=== PATIENT | female | born 1975 | race Caucasian/White ===

== ENCOUNTER 2023-10-27 13:21 | Outpatient (OUT) | payer OTHER, SELFPAY ==
--- NOTE | 2023-10-27 | XR_ITS ---
The [address] [address] Patient Name: JOHANN HASSAN MRN: [id number] date: 1975 Sex: F Assigned Patient Location: [facility] Current Patient Location: [facility] Accession/Order Number: [id number] Exam Date: 10/27/2023 13:40 Report Date: 10/27/2023 14:10 At the request of: KYLE HAND Procedure: XR foot RT min 3V EXAM: XR foot RT min 3V HISTORY: RIGHT FOOT PAIN while exercising. COMPARISON: None. TECHNIQUE: 3 views of the right foot were obtained. FINDINGS: There is no apparent acute fracture or dislocation. Very subtle changes are seen in the distal shaft of the fourth metatarsal bone suggesting a remote fracture or stress fracture which has healed. The joint spaces are intact throughout. No significant soft tissue swelling is identified. XR/XR foot RT min 3V IMPRESSION: No acute fracture or dislocation. Subtle changes in the fourth metatarsal bone suggests an old fracture or stress fracture which has healed. Direct comparison with a previous study may be helpful in determining the chronicity of these findings. Electronically authenticated by: KYLE BOWLES Date: 10/27/2023 14:10
== END 2023-10-27 13:22 | disposition home or self-care (01) ==
LOC: RAD 13:23
PROVIDERS: Visit Provider Podiatrist Foot & Ankle Surgery
DX: M79.671 Pain in right foot (principal)
CPT/HCPCS: 73630

== ENCOUNTER 2023-11-02 15:21 | Outpatient (OUT) | payer OTHER, SELFPAY ==
--- OUTSIDE RECORDS SUMMARY | 2023-11-02 15:23 | XMS_ITS | CCD ---
Author Name Unknown Address [address] [place] [address] Organization [facility] Care Team Providers Care [place] Worker Name Role Phone DR AHMET NEVAREZ Admitting Unavailable DR AHMET NEVAREZ Attending Unavailable BOO, DR TUTTLE Primary Care Unavailable DR AHMET NEVAREZ Consulting Unavailable [place] Primary Care Unavailable Rod Matute Attending Unavailable Rod Matute Admitting Unavailable Pura Tristan Unavailable Allergies Allergy Classification Reported Allergen(s) Allergy Type Date of Onset Reaction(s) Facility (1 source) Sulfonamides (Antibiotic) Drug allergy (disorder) [address] [place] [address] Repository (1 source) Sulfacetamide / Sulfur Drug Allergy [facility] [employer] Other Medications Current Medications Medication Drug Class(es) Dates Sig (Normalized) Sig (Original) azithromycin 250 mg oral tablet (1 source) Macrolide Antimicrobial Start: 09-27-2023 Azithromycin 250 MG Take 2 tablets on first day then 1 tablet daily for 4 days Orally as directed for 5 days Sep, Active Completed/Discontinued Medications Medication Drug Class(es) Dates Sig (Normalized) Sig (Original) amoxicillin 875 mg oral tablet (1 source) Penicillin-class Antibacterial Start: 08-31-2018 take 1 tablet by mouth every twelve hours Amoxicillin 875 MG 1 tablet Orally every 12 hrs for 7 days Aug, Not-Taking/PRN fluticasone propionate 0.05 mg/actuat metered dose nasal spray (1 source) Corticosteroid Start: 08-31-2018 take 1 spray(s) nasal route once daily as needed Fluticasone Propionate 50 MCG/ACT 1 spray in each nostril Nasally Once a day for 21 days Aug, Not-Taking/PRN Hydroxychloroquine (1 source) Antimalarial, Antirheumatic Agent Plaquenil Not-Taking/PRN methylPREDNISolone 4 mg oral tablet (1 source) Corticosteroid Start: 08-31-2018 Medrol (Zachery) 4 MG as directed Orally Aug, Not-Taking/PRN Problems Active Problems Problem Classification Problem Date Documented Da te Episodic/Chronic Other ear and sense organ disorders (1 source) Otitis externa; Translations: [Unspecified otitis externa, unspecified ear] Chronic Otitis media and related conditions (1 source) Otitis media, unspecified, bilateral Episodic Systemic lupus erythematosus and connective tissue disorders (4 sources) Systemic lupus erythematosus, unspecified; Translations: [SYSTEMIC LUPUS ERYTHMATOSUS UNS] Onset: 05-17-2021 Chronic Unclassified (1 source) Encounter for screening mammogram for malignant neoplasm of breast; Translations: [Encounter for screening mammogram for malignant neoplasm of breast] Onset: 03-30-2023 Past or Other Problems Problem Classification Problem Date Documented Da te Episodic/Chronic Unclassified (1 source) Contact with and (suspected) exposure to covid-19 Z20.822 Viral infection (1 source) COVID-19 Results Test Name Value Interpretation Reference Range Facility COVID + FLU Quick Testingon 09-27-2023 SARS-CoV-2 (COVID-19) RNA VY+probe Ql (Unsp spec) Positive [employer] [facility] Other COVID + FLU Quick Testing Negative [employer] Other MM screening mammo BI w/CADo n 03-30-2023 MM screening mammo BI w/CAD [facility] [place] [address] [place] [address] Mammography Report Signed Patient: Catalina Hassan MR#: [id number] : 1975 Acct:[id number] Age/Sex: 47 / F ADM Date: 03/30/23 Loc: [place] Room: Type: [facility] Attending Dr: Rod Matute DO Copies to: MD Rod Garcia DO Ordering Provider: Rod Matute DO Date of Service: 03/30/23 MM/MM screening mammo BI w/CAD: screening;Screening mammogram, encounter for CLINICAL DATA: Screening for malignancy. BILATERAL SCREENING MAMMOGRAMS - FULL FIELD DIGITAL WITH TOMOSYNTHESIS AND CAD Tomosynthesis craniocaudal and mediolateral oblique views of both breasts were obtained using low- dose digital technique. Comparison is made to prior studies from 03/26/2022, 03/25/2021, and 03/21/2020. This examination was reviewed with the aid of CAD. The breast parenchyma is very dense, limiting the sensitivity of mammography. Benign-appearing calcifications are present bilaterally. There are no dominant masses, typically malignant calcifications or architectural distortion. There has been no significant interval change. MM/MM screening mammo BI w/CAD IMPRESSION: NO MAMMOGRAPHIC EVIDENCE OF MALIGNANCY. ROUTINE FOLLOW-UP IS RECOMMENDED IN ONE YEAR. RESULT CODE: 2 Benign Findings(s) DENSITY CODE: 4 (>75% glandular) FOLLOW UP: 1YR The false-negative rate of mammography is approximately 10-percent. Management of a palpable abnormality must be based on clinical grounds. Patient was entered into a reminder system with a target due date for the next mammogram. Impression dictated by: Antonio Brody M.D.03/30/2023 2:06 PM Dictation Location: [facility] Transcribed By: [facility] 03/30/23 140 Dictated By: Antonio Brody II, MD 03/30/231400 Signed By: 03/30/23 140 [facility] C3 and C4 COMPLEMENTon 05-18 Complement C3, Serum 89 mg/dL Normal 82-167 [facility] Comment on above: Performed By: #### CSUITE #### [facility] [place] [facility] [address] [place], [place] [address] Ivan Cassia Complement C4, Serum 13 mg/dL Normal 12-38 [facility] [place] [facility] Comment on above: Performed By: #### CSUITE #### [facility] [place] [facility] [address] [place], [place] [address] Ivan Cassia CBC AUTO DIFFon 05-17-2021 BASO # 0.0 103/ul Normal 0.0-0.1 [facility] Comment on above: Performed By: #### CBC #### [facility] [place] [facility] [address] [place], [place] [address] Ivan Cassia Basophils/100 WBC (Bld) 0.8 % Normal 0.2-2.0 [facility] Comment on above: Performed By: #### CBC #### [facility] [place] [facility] [address] [place], [place] [id number] Ivan Cassia EO # 0.0 103/ul Normal 0.0-0.7 [facility] [place] [facility] Comment on above: Performed By: #### CBC #### [facility] [place] [facility] [address] [place] [address] Ivan Cassia Eosinophils/100 WBC (Bld) 1.0 % Normal 0.9-7.0 [facility] [place] [facility] Comment on above: Performed By: #### CBC #### [facility] [place] [facility] [address] [place] [address] Ivan Cassia Erythrocyte distribution width (RBC) [Ratio] 12.5 % Normal 11.0-15.0 [facility] [place] [facility] Comment on above: Performed By: #### CBC #### [facility] [place] [facility] [address] [place] [address] Ivan Cassia Hematocrit (Bld) [Volume fraction] 40.7 % Normal 36.0-48.0 [facility] Comment on above: Performed By: #### CBC #### [facility] [place] [facility] [address] [place] [address] Ivan Cassia Hemoglobin (Bld) [Mass/Vol] 13.7 g/dL Normal 12.0-16.0 [facility] [place] [facility] Comment on above: Performed By: #### CBC #### [facility] [place] [facility] [address] [place] [address] Ivan Cassia IG # 0.01 10e3/ul Normal 0.00-0.03 [facility] [place] [facility] Comment on above: Performed By: #### CBC #### [facility] [place] [facility] [address] [place] [address] Ivan Cassia IG % 0.3 % Normal 0.0-0.5 [facility] [place] [facility] Comment on above: Performed By: #### CBC #### [facility] [place] [facility] [address] [place] [address] Ivan Cassia LYMPH # 1.4 103/ul Normal 1.2-3.8 [facility] [place] [facility] Comment on above: Performed By: #### CBC #### [facility] [place] [facility] [address] [place] [address] Ivan Cassia Lymphocytes/100 WBC (Bld) 36.5 % Normal 20.5-60.0 [facility] [place] [facility] Comment on above: Performed By: #### CBC #### [facility] [place] [facility] [address] [place] [address] Ivan Antony MANUAL DIFF REQ NO Normal [facility] [place] [facility] Comment on above: Performed By: #### CBC #### [facility] [place] [facility] [address] [place] [address] Ivansteffen Antony MCH (RBC) [Entitic mass] 32.0 pg Normal 26.7-34.0 [facility] [place] [facility] Comment on above: Performed By: #### CBC #### [facility] [place] [facility] [address] [place] [address] Ivansteffen Antony MCHC (RBC) [Mass/Vol] 33.7 g/dL Normal 29.9-35.2 [facility] [place] [facility] Comment on above: Performed By: #### CBC #### [facility] [place] [facility] [address] [place] [address] Ivansteffen Antony MCV (RBC) [Entitic vol] 95.1 fL Normal 81.0-99.0 [facility] [place] [facility] Comment on above: Performed By: #### CBC #### [facility] [place] [facility] [address] [place] [address] Ivansteffen Antony MONO # 0.4 103/ul Normal 0.3-0.8 [facility] [place] [facility] Comment on above: Performed By: #### CBC #### [facility] [place] [facility] [address] [place] [address] Ivan Cassia Monocytes/100 WBC (Bld) 10.3 % Normal 1.7-12.0 [facility] [place] [facility] Comment on above: Performed By: #### CBC #### [facility] [place] [facility] [address] [place] [address] Ivan Cassia NEUT # 2.0 103/ul Normal 1.4-6.5 [facility] [place] [facility] Comment on above: Performed By: #### CBC #### [facility] [place] [facility] [address] [place] [address] Ivansteffen Antony Neutrophils/100 WBC (Bld) 51.1 % Normal 43.0-75.0 [facility] Comment on above: Performed By: #### CBC #### [facility] [place] [facility] [address] [place] [address] Ivan Antony Platelet mean volume (Bld) [Entitic vol] 10.2 fL Normal 9.5-13.5 [facility] Comment on above: Performed By: #### CBC #### [facility] [place] [facility] [address] [place] [address] Ivan Quinteroen PLT 196 103/ul Normal 150-450 [facility] [place] [facility] Comment on above: Performed By: #### CBC #### [facility] [place] [facility] [address] [place] [address] Ivan Cassia RBC 4.28 106/ul Normal 4.20-5.40 [facility] [place] [facility] Comment on above: Performed By: #### CBC #### [facility] [place] [facility] [address] [place] [address] Ivan Quinteroen WBC 3.9 103/ul Critically low 4.0-11.0 [facility] Comment on above: Performed By: #### CBC #### [facility] [place] [facility] [address] [place] [address] Ivan Antony CREATININEon 05-17-2021 Creatinine [Mass/Vol] 0.96 mg/dL Normal 0.52-1.04 [facility] [place] [facility] Comment on above: Performed By: #### CRP, CREA #### [facility] [place] [facility] [address] [place] [address] Ivan Cassia EGFR-AF SRI LANKAN >60 Normal >=60 [facility] [place] [facility] Comment on above: Performed By: #### CRP, CREA #### [facility] [place] [facility] [address] [place] [address] Ivan Cassia EGFR-NON AF SRI LANKAN >60 Normal >=60 [facility] [place] [facility] Comment on above: Performed By: #### CRP, CREA #### [facility] [place] [facility] [address] [place] [address] Ivan Antony CRPon 05-17-2021 CRP [Mass/Vol] mg/L Normal <=1.0 [facility] Comment on above: Performed By: #### CRP, CREA #### [facility] [place] [facility] [address] [place] [address] Ivan Cassia SED RATE WESTERGRENon 2020 SED RATE 4 mm/hr Normal <=20 [facility] [place] [facility] Comment on above: Performed By: #### SEDR #### [facility] [place] [facility] [address] [place] [address] Ivan Cassia UA RANDOM W/MICROSCOPICon BACTERIA TRACE Abnormal NONE SEEN [facility] [place] [facility] Comment on above: Performed By: #### UAMIC #### [facility] [place] [facility] [address] [place] [address] Ivan Cassia Bilirubin Ql (U) Negative Normal NEGATIVE [facility] [place] [facility] Comment on above: Performed By: #### UAMIC #### [facility] [place] [facility] [address] [place] [address] Ivan Cassia CAST NONE SEEN Normal NONE SEEN [facility] [place] [facility] Comment on above: Performed By: #### UAMIC #### [facility] [place] [facility] [address] [place] [address] Ivan Cassia Clarity (U) SL CLOUDY Abnormal CLEAR [facility] [place] [facility] Comment on above: Performed By: #### UAMIC #### [facility] [place] [facility] [address] [place] [address] Ivan Cassia Color (U) LT. YELLOW Normal YELLOW [facility] [place] [facility] Comment on above: Performed By: #### UAMIC #### [facility] [place] [facility] [address] [place] [address] Ivan Cassia Crystals LM Nom (Urine sed) NONE SEEN Normal NONE SEEN [facility] [place] [facility] Comment on above: Performed By: #### UAMIC #### [facility] [place] [facility] [address] [place] [address] Ivan Cassia Epithelial cells LM Ql (Urine sed) RARE Normal NONE SEEN /RARE [facility] [place] [facility] Comment on above: Performed By: #### UAMIC #### [facility] [place] [facility] [address] [place] [address] Ivan Cassia Glucose Ql (U) Negative Normal NEGATIVE [facility] Comment on above: Performed By: #### UAMIC #### [facility] [place] [facility] [address] [place] [address] Ivan Cassia Hemoglobin Ql (U) Negative Normal NEGATIVE [facility] [place] [facility] Comment on above: Performed By: #### UAMIC #### [facility] [place] [facility] [address] [place] [address] Ivan Cassia Ketones Ql (U) Negative Normal NEGATIVE [facility] Comment on above: Performed By: #### UAMIC #### [facility] [place] [facility] [address] [place] [address] Ivan Cassia LEUKOCYTES Negative Normal NEGATIVE [facility] [place] [facility] Comment on above: Performed By: #### UAMIC #### [facility] [place] [facility] [address] [place] [address] Ivan Cassia MUCOUS NONE SEEN Normal NONE SEEN [facility] [place] [facility] Comment on above: Performed By: #### UAMIC #### [facility] [place] [facility] [address] [place] [address] Ivan Cassia Nitrite Ql (U) Negative Normal NEGATIVE [facility] Comment on above: Performed By: #### UAMIC #### [facility] [place] [facility] [address] [place] [address] Ivan Cassia pH (U) 7.0 [pH] Normal 5-9 [facility] [place] [facility] Comment on above: Performed By: #### UAMIC #### [facility] [place] [facility] [address] [place] [address] Ivan Cassia RBC NONE SEEN Abnormal 0-2 [facility] [place] [facility] Comment on above: Performed By: #### UAMIC #### [facility] [place] [facility] [address] [place] [address] Ivan Cassia SPEC GRAVITY <=1.005 Abnormal 1.005-<=1.0 25 [facility] Comment on above: Performed By: #### UAMIC #### [facility] [place] [facility] [address] [place] [address] Ivan Cassia UA PROTEIN Negative Normal NEGATIVE/ TRACE [facility] [place] [facility] Comment on above: Performed By: #### UAMIC #### [facility] [place] [facility] [address] [place] [address] Ivan Cassia Urobilinogen Qn (U) 0.2 {Edgard'U}/dL Normal 0.2 - 1.0 [facility] [place] [facility] Comment on above: Performed By: #### UAMIC #### [facility] [place] [facility] [address] [address] Ivan Antony WBC NONE SEEN Normal NONE SEEN [facility] [place] [facility] Comment on above: Performed By: #### UAMIC #### [facility] [place] [facility] [address] [address] Ivan Antony PROGRESSon 08-27-2018 Protein mass conc HNO ID: [id number]: [facility] ProviderService: (none)Author Type: PhysicianType: Progress NotesFiled: 08/27/2018 6:27 AMNote Text:null (CCF:Not available [id number]:[id number])Visit Summary for Catalina Hassan - Gender: Female - Date of :1975 ( ) Date: - Duration: 5 minutesPatient: Catalina Crook JenniferProvider: Justus PedrazaPatient Contact [id number] [place] [id number] Topicspotential sinus infection, lots of snot, throat is sore. : other [AddedBy: Self - 2018-08-27]Triage QuestionsPlease provide your current address. We need this on file in case of amedical emergency.Answer [[phone] [phone]]Conversation Transcripts [Notification] Practice Staff, Global Staff, will help you prepare foryour visit. She is assisting Justus Pedraza Family .[PracticeStaff] Ivan, and thank you for connecting. The provider you are waitingto connect with is currently with another patient and will begin yourvisit shortly. Are there any questions I can answer about utilizing thisservice while you are waiting? (Please contact our customer service teamfor assistance with billing and insurance issues.)[Notification] Mitesh has left the room.[Notification] You are connected with Family Hafsa Hickman.[Notification] Catalina Hassan is located [facility].[Notification] Catalina Hassan has shared healthhistory...[Notification] A phone visit is being added.[Notification]Justus Pedraza has added a diagnosis/procedure code (see the VisitNotes tab).[Notification] Justus Pedraza has added adiagnosis/procedure code (see the Visit Notes tab).[Notification] Thephone visit has ended.DiagnosisAcute upper respiratory infection, unspecified Value: J06.9Code: [id number]: [id number] Code: CPT-4 ONLINE E/M BY PHYS/QHPMedications PrescribedPlaquenilFrequency :Provider Notes We strongly encourage you to share the following record of today's visitwith your primary care physician. Contact phone number:Mode ofCommunication: VideoHPI: Over the past few days patient has developedscratchy throat, rhinitis, and a mild dry cough. The patient feels alittle achy and tired, but has not had fever. No known exposure to strep. PMH: LupusPSH: C-sectionSmoking HX: NonsmokerMeds: PlaquenilAllergies:SulfaPE: Gen: Well appearing, in no acute distressNose: CongestedResp:Nasal voice and throat cleaning. No respiratory distress or wheezeSinus:No sinus tenderness. No SOB or wheeze. Assessment: upper respiratoryinfection, most likely viral Diagnosis Code J06.9 Plan: 1.Discussedoptions. Recommend supportive treatment- Fluids, rest, Tylenol. Nasalsalt water irrigation or Neti Pot can be helpful. 2.Sleeping withhead/chest elevated can help with sinus drainage. 3.Follow up ifsymptoms worsen or if symptoms persist longer than 5-7 days. 4.Discussedprecautions. Follow up:1.If you received a prescription at this visit andhave any questions or problems with the prescription, call [phone] assistance. 2.Please re-connect for another online visit or see anin-person provider should your symptoms worsen or persist longer than 5-7days. 3.Please print a copy of this note and send it to your regulardoctor, or take it to your next visit so it may be included in yourmedical record. Patient voiced understanding and agrees to plan. Pleasebe sure to see your PCP on an annual basis.Electronically signed by: Justus Pedraza( ) Normal [facility] Vital Signs Date Time Vital Sign Value Performing Clinician Facility 09-27-2023 14:00-0500 Body height 167.64 cm Pura Kun Other [facility] [facility] Other 09-27-2023 14:00-0500 Body mass index (BMI) [Ratio] 26.14 kg/m2 Pura Kun Other [facility] [facility] Other 09-27-2023 14:00-0500 Body temperature 97.8 [degF] Pura Kun Other [facility] Other 09-27-2023 14:00-0500 Body weight 73.48 kg Pura Kun Other [facility] [facility] Other 09-27-2023 14:00-0500 Respiratory rate 18 /min Pura Kun Other [facility] Other 09-27-2023 14:00-0500 SaO2% (BldA) [Mass fraction] 98 % Pura Kun Other [facility] Other Encounters Encounter Date Encounter Type Care Provider Facility Start: 09-27-2023 End: 09-27-2023 ambulatory Pura Kun Other [facility] Other Start: 09-27-2023 Office outpatient vi sit 15 minutes Pura Kun [facility] Start: 03-30-2023 End: 03-30-2023 ambulatory [place]is [place] Facility:[facility] Start: 05-17-2021 End: 05-18-[address] AHMET NEVAREZ Facility: Payers Date Payer Category Payer Self-pay 1975 Unknown [id number] 1957 Unknown [id number] Unknown [id number] Social History Date Type Detail Facility Sex Assigned At [facility] Other Evaluation note 09-27-2023 Note Date & Type Note Facility 09-27-2023 Evaluation note Encounter Date Diagnosis Assessment Notes Sep, Contact with and (suspected) exposure to covid-19 (ICD-10 - Z20.822) Sep, COVID (ICD-10 - U07.1) You were seen here today for your complaints of sore throat, ear pain, congestion, cough, headaches, runny nose, and fevers. You were tested for covid, flu. You tested positive for covid. Covid is a viral illness and antibiotics are not necessary for covid. You do have a bilateral ear infection starting with redness to both ear canals and the ear drum. You are being prescribe dthe antibiotic azithromying for your ear infection. Take the medicaiton as directed. Rest, drink plenty of fluid, take tylenol and motrin for fever, discomfort. You may take over the counter cold and flu medication for symptoms, follow boxx instructions. [facility] if symptoms persist, go to the ER if you develop chest pain, shortness of breath, difficulty breathing or pain with deep breathing. Sep, Acute bilateral otitis media (ICD-10 - H66.93) [place] [employer] Other History general Narrative - Reported Note Date & Type Note Facility History general Narrative - Reported Type Medical History Lupus Surgical History Hospitalization History see above surgical histo ry [employer] Other Summary Purpose Family History No Family History Records FoundNo Family History Records FoundNo Family History Records Found Advance Directives No Advanced Directives Records FoundNo Advanced Directives Records FoundNo Advanced Directives Records Found Additional Source Comments INFORMATION SOURCE (unrecogn ized section and content) DATE CREATED AUTHOR 09/20/2018 [facility] DATE CREATED AUTHOR AUTHOR'S ORGANIZ ATION 07/06/2021 [facility] DATE CREATED AUTHOR AUTHOR'S ORGANIZ ATION 03/31/2023 [facility] REASON FOR VISIT (unrecogniz ed section and content) waiting in car- HEAD COLD, C ONGESTION EARS FOR RECORDS PERTAINING TO PATIENTS WHO ARE OR HAVE BEEN ENROLLED IN A CHEMICAL DEPENDENCY/SUBSTANCEABUSE PROGRAM, SOME INFORMATION MAY BE OMITTED. This clinical summary was aggregated from multiple sources. Caution should be exercised in using it in the provision of clinical care. This summary normalizes information from multiple sources, and as a consequence, information in this document may materially change the coding, format and clinical context of patient data. In addition, data may be omitted in some cases. CLINICAL DECISIONS SHOULD BE BASED ON THE PRIMARY CLINICAL RECORDS. [facility] [email or web address] [facility]. provides no warranty or guarantee of the accuracy or completeness of information in this document.
--- NOTE | 2023-11-02 15:25 | MR_ITS ---
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 TECHNIQUE: Multi planar, multisequence MR imaging of the right ankle without contrast Findings: Bones and cartilage: No acute fracture or malalignment. No focal bone marrow edema. No significant degenerative change. No articular erosions. No osteochondral abnormality. Muscles and tendons: No abnormal signal within the visualized musculature. The Achilles, anterior, medial and lateral tendons about the ankle are intact. No significant tendinosis or tenosynovitis. Ligaments: The medial and lateral ligaments about the ankle are intact. Spring ligament is intact. Fat signal persists within the sinus Tarsi. Miscellaneous: Trace ankle effusion extending posteriorly. There is focal thickening of the proximal medial band of the plantar fascia. MR/MR ankle RT wo con IMPRESSION: 1. Focal thickening of the proximal medial band of the plantar fascia may relate to fasciitis or possibly a fibroma. Electronically authenticated by: NAKUL DHILLON Date: 11/03/2023 07:52
== END 2023-11-02 15:22 | disposition home or self-care (01) ==
LOC: MRI 15:21
PROVIDERS: Visit Provider Physician Assistant
DX: D49.2 Neoplasm of unspecified behavior of bone, soft tissue, and skin (principal)
CPT/HCPCS: 73721

== ENCOUNTER 2023-11-26 12:12 | Outpatient (OUT) | payer OTHER, SELFPAY ==
--- OUTSIDE RECORDS SUMMARY | 2023-11-26 12:17 | XMS_ITS | CCD ---
Author Name Unknown Address [address] [place] [address] Organization [facility] Care Team Providers Care School Administrator Name Role Phone DR AHMET NEVAREZ Admitting Unavailable DR AHMET NEVAREZ Attending Unavailable BOO, DR TUTTLE Primary Care Unavailable DR AHMET NEVAREZ Consulting Unavailable [place] [place] Primary Care Unavailable Rod Matute Attending Unavailable Rod Matute Admitting Unavailable Pura Tristan Unavailable Allergies Allergy Classification Reported Allergen(s) Allergy Type Date of Onset Reaction(s) Facility (1 source) Sulfonamides (Antibiotic) Drug allergy (disorder) [address] [place] [address] Repository (1 source) Sulfacetamide / S[facility]ur [facility] Other Medications Current Medications Medication Drug Class(es) [...] (COVID-19) RNA VY+probe Ql (Unsp spec) Positive [facility] Other COVID + FLU Quick Testing Negative [facility] Other MM screening mammo BI w/CADo n 03-30-2023 MM screening mammo BI w/CAD [facility] Main [place] [address] [place] [address] Mammography Report Signed Patient: Catalina Hassan MR#: [id number] : 1975 Acct:[id number] Age/Sex: 47 / F ADM Date: 03/30/23 Loc: MS Room: Type: [facility] Attending Dr: Rod Matute DO Copies to: [...] Antonio Brody M.D.03/30/2023 2:06 PM Dictation Location: [facility] Transcribed By: [facility] 03/30/23 140 Dictated By: Antonio Brody II, MD 03/30/231400 Signed By: 03/30/23 140 [facility] C3 and C4 COMPLEMENTon 05-18 Complement C3, Serum 89 mg/dL Normal 82-167 [facility] Comment on above: Performed By: #### CSUITE #### [facility] [address] [place], [place] [address] Ivan Cassia Complement C4, Serum 13 mg/dL Normal 12-38 [facility] Comment on above: Performed By: #### CSUITE #### [facility] [address] [place], [place] [address] Ivan Cassia CBC AUTO DIFFon 05-17-2021 BASO # 0.0 103/ul Normal 0.0-0.1 [facility] Comment on above: Performed By: #### CBC #### [facility] [address] [place], [place] [address] Ivan Cassia Basophils/100 WBC (Bld) 0.8 % Normal 0.2-2.0 [facility] Comment on above: Performed By: #### CBC #### [facility] [address] [place], [place] [id number] Ivan Cassia EO # 0.0 103/ul Normal 0.0-0.7 [facility] Comment on above: Performed By: #### CBC #### [facility] [address] [place] [address] Ivan Cassia Eosinophils/100 WBC (Bld) 1.0 % Normal 0.9-7.0 [facility] Comment on above: Performed By: #### CBC #### [facility] [address] [place] [address] Ivan Cassia Erythrocyte distribution width (RBC) [Ratio] 12.5 % Normal 11.0-15.0 [facility] Comment on above: Performed By: #### CBC #### [facility] [address] [place] [address] Ivan Cassia Hematocrit (Bld) [Volume fraction] 40.7 % Normal 36.0-48.0 [facility] Comment on above: Performed By: #### CBC #### [facility] [address] [place] [address] Ivan Cassia Hemoglobin (Bld) [Mass/Vol] 13.7 g/dL Normal 12.0-16.0 [facility] Comment on above: Performed By: #### CBC #### [facility] [address] [place] [address] Ivan Cassia IG # 0.01 10e3/ul Normal 0.00-0.03 [facility] Comment on above: Performed By: #### CBC #### [facility] [address] [place] [address] Ivan Csasia IG % 0.3 % Normal 0.0-0.5 [facility] Comment on above: Performed By: #### CBC #### [facility] [address] [place] [address] Ivan Cassia LYMPH # 1.4 103/ul Normal 1.2-3.8 [facility] Comment on above: Performed By: #### CBC #### [facility] [address] [place], [place] [id number] Ivan Cassia Lymphocytes/100 WBC (Bld) 36.5 % Normal 20.5-60.0 [facility] Comment on above: Performed By: #### CBC #### [facility] [address] [place] [address] Ivan Antony MANUAL DIFF REQ NO Normal [facility] Comment on above: Performed By: #### CBC #### [facility] [address] [place] [address] Ivansteffen Antony MCH (RBC) [Entitic mass] 32.0 pg Normal 26.7-34.0 [facility] Comment on above: Performed By: #### CBC #### [facility] [address] [place] [address] Ivansteffen Antony MCHC (RBC) [Mass/Vol] 33.7 g/dL Normal 29.9-35.2 [facility] Comment on above: Performed By: #### CBC #### [facility] [address] [place] [address] Ivan Cassia MCV (RBC) [Entitic vol] 95.1 fL Normal 81.0-99.0 [facility] Comment on above: Performed By: #### CBC #### [facility] [address] [place] [address] Ivan Cassia MONO # 0.4 103/ul Normal 0.3-0.8 [facility] Comment on above: Performed By: #### CBC #### [facility] [address] [place] [address] Ivan Cassia Monocytes/100 WBC (Bld) 10.3 % Normal 1.7-12.0 [facility] Comment on above: Performed By: #### CBC #### [facility] [address] [place] [address] Ivan Cassia NEUT # 2.0 103/ul Normal 1.4-6.5 [facility] Comment on above: Performed By: #### CBC #### [facility] [address] [place] [address] Ivansteffen Antony Neutrophils/100 WBC (Bld) 51.1 % Normal 43.0-75.0 [facility] Comment on above: Performed By: #### CBC #### [facility] [address] [place] [address] Ivan Antony Platelet mean volume (Bld) [Entitic vol] 10.2 fL Normal 9.5-13.5 [facility] Comment on above: Performed By: #### CBC #### [facility] [address] [place] [address] Ivan Quinteroen PLT 196 103/ul Normal 150-450 [facility] Comment on above: Performed By: #### CBC #### [facility] [address] [place] [address] Ivansteffen Quinteroen RBC 4.28 106/ul Normal 4.20-5.40 [facility] Comment on above: Performed By: #### CBC #### [facility] [address] [place] [address] Ivan Antony WBC 3.9 103/ul Critically low 4.0-11.0 [facility] [place] Comment on above: Performed By: #### CBC #### [facility] [address] [place] [address] Ivan Anotny CREATININEon 05-17-2021 Creatinine [Mass/Vol] 0.96 mg/dL Normal 0.52-1.04 [facility] Comment on above: Performed By: #### CRP, CREA #### [facility] [address] [place] [address] Ivansteffen Quinteroen EGFR-AF PANAMANIAN >60 Normal >=60 [facility] Comment on above: Performed By: #### CRP, CREA #### [facility] [address] [place] [address] Ivansteffen Quinteroen EGFR-NON AF PANAMANIAN >60 Normal >=60 [facility] Comment on above: Performed By: #### CRP, CREA #### [facility] [address] [place] [address] Ivan Antony CRPon 05-17-2021 CRP [Mass/Vol] mg/L Normal <=1.0 [facility] [place] Comment on above: Performed By: #### CRP, CREA #### [facility] [address] [place] [address] Ivan Cassia SED RATE WESTERGRENon 2020 SED RATE 4 mm/hr Normal <=20 [facility] Comment on above: Performed By: #### SEDR #### [facility] [address] [place] [address] Ivan Cassia UA RANDOM W/MICROSCOPICon BACTERIA TRACE Abnormal NONE SEEN [facility] Comment on above: Performed By: #### UAMIC #### [facility] [address] [place] [address] Ivan Cassia Bilirubin Ql (U) Negative Normal NEGATIVE [facility] Comment on above: Performed By: #### UAMIC #### [facility] [address] [place] [address] Ivan Cassia CAST NONE SEEN Normal NONE SEEN [facility] Comment on above: Performed By: #### UAMIC #### [facility] [address] [place] [address] Ivan Cassia Clarity (U) SL CLOUDY Abnormal CLEAR [facility] Comment on above: Performed By: #### UAMIC #### [facility] [address] [place] [address] Ivan Cassia Color (U) LT. YELLOW Normal YELLOW [facility] Comment on above: Performed By: #### UAMIC #### [facility] [address] [place] [address] Ivan Cassia Crystals LM Nom (Urine sed) NONE SEEN Normal NONE SEEN [facility] Comment on above: Performed By: #### UAMIC #### [facility] [address] [place] [address] Ivan Cassia Epithelial cells LM Ql (Urine sed) RARE Normal NONE SEEN /RARE [facility] Comment on above: Performed By: #### UAMIC #### [facility] [address] [place] [address] Ivan Cassia Glucose Ql (U) Negative Normal NEGATIVE [facility] [place] Comment on above: Performed By: #### UAMIC #### [facility] [address] [place] [address] Ivan Cassia Hemoglobin Ql (U) Negative Normal NEGATIVE [facility] Comment on above: Performed By: #### UAMIC #### [facility] [address] [place] [address] Ivan Cassia Ketones Ql (U) Negative Normal NEGATIVE [facility] [place] Comment on above: Performed By: #### UAMIC #### [facility] [address] [place] [address] Ivan Cassia LEUKOCYTES Negative Normal NEGATIVE [facility] Comment on above: Performed By: #### UAMIC #### [facility] [address] [place] [address] Ivan Cassia MUCOUS NONE SEEN Normal NONE SEEN [facility] Comment on above: Performed By: #### UAMIC #### [facility] [address] [place] [address] Ivan Cassia Nitrite Ql (U) Negative Normal NEGATIVE [facility] [place] Comment on above: Performed By: #### UAMIC #### [facility] [address] [place] [address] Ivan Cassia pH (U) 7.0 [pH] Normal 5-9 [facility] Comment on above: Performed By: #### UAMIC #### [facility] [address] [place] [address] Ivan Cassia RBC NONE SEEN Abnormal 0-2 [facility] Comment on above: Performed By: #### UAMIC #### [facility] [address] [place] [address] Ivan Cassia SPEC GRAVITY <=1.005 Abnormal 1.005-<=1.0 25 [facility] Comment on above: Performed By: #### UAMIC #### [facility] [address] [place] [address] Ivan Cassia UA PROTEIN Negative Normal NEGATIVE/ TRACE [facility] Comment on above: Performed By: #### UAMIC #### [facility] [address] [place] [address] Ivan Cassia Urobilinogen Qn (U) 0.2 {Edgard'U}/dL Normal 0.2 - 1.0 [facility] Comment on above: Performed By: #### UAMIC #### [facility] [address] [place] [address] Ivan Antony WBC NONE SEEN Normal NONE SEEN [facility] Comment on above: Performed By: #### UAMIC #### [facility] [address] [place] [address] Ivan Antony PROGRESSon 08-27-2018 Protein mass conc HNO ID: [id number]: [facility] ProviderService: (none)Author Type: PhysicianType: Progress NotesFiled: 08/27/2018 6:27 AMNote Text:null (CCF:Not available AMW:[id number])Visit Summary for Catalina Hassan - Gender: Female - Date of :1975 ( ) Date: - Duration: 5 minutesPatient: Catalina Crook JenniferProvider: Justus PedrazaPatient Contact [id number] [facility]; [place] [id number] Topicspotential sinus infection, lots of snot, throat is sore. : other [AddedBy: Self - 2018-08-27]Triage QuestionsPlease provide your current address. We need this on file in case of amedical emergency.Answer [[address] [address]]Conversation Transcripts [Notification] Practice Staff, Global Staff, will [...] Family Hafsa Hickman.[Notification] Catalina Hassan is located [facility]Notification] Catalina Hassan has shared healthhistory...[Notification] A phone visit is being added.[Notification]Justus Pedraza has added a diagnosis/procedure code (see the VisitNotes tab).[Notification] Justus Pedraza has added adiagnosis/procedure code (see the Visit Notes tab).[Notification] Thephone visit has ended.DiagnosisAcute upper respiratory infection, unspecified Value: J06.9Code: [id number]: [id number] Code: CPT-4 ONLINE E/M BY PHYS/QHPMedications PrescribedPlaquenilFrequency [...] questions or problems with the prescription, call [phone] assistance. 2.Please re-connect for another online visit [...] basis.Electronically signed by: Justus Pedraza( ) Normal [facility] Vital Signs Date Time Vital Sign Value Performing Clinician Facility 09-27-2023 14:00-0500 Body height 167.64 cm Pura Kun Other [facility] Other 09-27-2023 14:00-0500 Body mass index (BMI) [Ratio] 26.14 kg/m2 Pura Kun Other [facility] Other 09-27-2023 14:00-0500 Body temperature 97.8 [degF] Pura Kun Other [facility] Other 09-27-2023 14:00-0500 Body weight 73.48 kg Pura Kun Other [facility] Other 09-27-2023 14:00-0500 Respiratory rate 18 /min Pura Kun Other [facility] Other 09-27-2023 14:00-0500 SaO2% (BldA) [Mass fraction] 98 % Pura Kun Other [facility] Other Encounters Encounter Date Encounter Type Care Provider Facility Start: 09-27-2023 End: 09-27-2023 ambulatory Pura Kun Other [facility] Other Start: 09-27-2023 Office outpatient vi sit 15 minutes Pura Kun [facility] Start: 03-30-2023 End: 03-30-2023 ambulatory [place] Facility:[facility] Start: 05-17-2021 End: 05-18-[address] AHMET NEVAREZ Facility: Payers Date Payer Category Payer Self-pay 1975 Unknown [id number] 1957 Unknown [id number] Unknown [id number] Social History Date Type Detail Facility Sex Assigned At [facility] Other Evaluation note 09-27-2023 Note Date & [...] follow boxx instructions. [facility] if symptoms persist, go to the ER if you develop chest pain, shortness of breath, difficulty breathing or pain with deep breathing. Sep, Acute bilateral otitis media (ICD-10 - H66.93) [facility] Other History general Narrative - Reported Note Date & Type Note Facility History general Narrative - Reported Type Medical History Lupus Surgical History Hospitalization History see above surgical histo ry [facility] Other Summary Purpose Family History No Family History Records FoundNo Family History Records FoundNo Family History Records Found Advance Directives No Advanced Directives Records FoundNo Advanced Directives Records FoundNo Advanced Directives Records Found Additional Source Comments INFORMATION SOURCE (unrecogn ized section and content) DATE CREATED AUTHOR 09/20/2018 [facility] DATE CREATED AUTHOR AUTHOR'S ORGANIZ ATION 07/06/2021 [facility] DATE CREATED AUTHOR AUTHOR'S ORGANIZ ATION 03/31/2023 [facility] REASON FOR VISIT (unrecogniz ed section and [...] BE BASED ON THE PRIMARY CLINICAL RECORDS. [facility] [employer] [facility]. provides no warranty or guarantee of the accuracy or completeness of information in this document.
--- NOTE | 2023-11-26 12:18 | ECG_ITS ---
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
--- NOTE | 2023-11-26 12:49 | PM.PRESUREVA ---
History of Present Illness History of Present Illness Chief complaint: plantar facial fibromatosis Narrative: Patient presents for preadmission testing. The patient reports right foot pain for the past seven months or so. The patient states she is very active and has more pain after activities. She denies numbness, tingling, weakness, or any other complaints. She states she is taking meloxicam with some relief of her symptoms. Review of Systems ROS Narrative REVIEW OF SYSTEMS: Negative except as stated in HPI, ten or more systems reviewed. Constitutional: No fever , chills, weakness ENT: No sore throat or epistaxis Cardiovascular: No edema, chest pain, palpitations, or activity intolerance Respiratory: No shortness of breath, cough, or wheezing Musculoskeletal: No joint pain or swelling Gastrointestinal: No abdominal pain, constipation, diarrhea, or vomiting Genitourinary: No dysuria or hematuria Neurological: No numbness, tingling, weakness, or headache Psychiatric: No mood changes PFSH PFSH Medical History (Updated 11/26/23 @ 12:31 by Andie Slater NP) COVID-19 (09/2023) ?U07.1 - COVID-19 (ICD-10) Encounter for IUD removal ?Z30.432 - Encounter for removal of intrauterine contraceptive device (ICD-10) Attempted IUD removal, unsuccessful ?Z53.8 - Procedure and treatment not carried out for other reasons (ICD-10) ?Z97.5 - Presence of (intrauterine) contraceptive device (ICD-10) Heart murmur ?R01.1 - Cardiac murmur, unspecified (ICD-10) Foot pain ?M79.673 - Pain in unspecified foot (ICD-10) Deformity of right lower extremity ?M21.951 - Unspecified acquired deformity of right thigh (ICD-10) Plantar fascial fibromatosis ?M72.2 - Plantar fascial fibromatosis (ICD-10) Surgical History (Updated 11/26/23 @ 12:20 by Andie Slater NP) H/O section ?Z98.891 - History of uterine scar from previous surgery (ICD-10) Family History (Updated 11/26/23 @ 12:31 by Andie Slater NP) Other Family history of DVT Family history of breast cancer Family history of hypertension Heart disease Pacemaker Social History (Updated 11/26/23 @ 12:26 by Andie Slater NP) Within the past year, how often did you have a drink containing alcohol: 2-3 times a week Smoking status: Never smoker Non-prescribed substance use: denies use Previous occupational history: Parking Regulation Enforcement Officer Highest level of school completed/degree received: Master's degree Meds Home Medications and Allergies Home Medications Medication Instructions Recorded Confirmed Type meloxicam 15 mg tablet 15 mg PO DAILY 11/26/23 11/26/23 History Allergies Allergy/AdvReac Type Severity Reaction Status Date / Time Sulfa (Sulfonamide Allergy Rash Verified 11/26/23 12:25 Antibiotics) Exam Narrative Exam Narrative: Constitutional: Awake, alert, comfortable, well-appearing, nontoxic, interactive, vital signs as charted Head: Normocephalic, atraumatic Neck: Supple, normal appearance, normal range of motion, no meningeal signs, no lymphadenopathy Respiratory: No respiratory distress, breath sounds clear Cardiovascular: Regular rate and rhythm, strong and regular heart tones Musculoskeletal: Normal gait, no swelling or edema; Tenderness on the plantar aspect of the right foot along the medial arch, good capillary refill, sensation intact Skin: No rashes or induration, no lesions, only visible skin inspected Neuro: No neurological deficits, normal sensation Psychiatric: Oriented ?3, normal affect Assessment and Plan Assessment and Plan (1) Deformity of right lower extremity: (2) Plantar fascial fibromatosis: Plan Right endoscopic plantar fasciotomy and Minoo gastrocnemius recession scheduled with Dr. Bianchi 12/10/2023.
== END 2023-11-26 12:13 | disposition home or self-care (01) ==
LOC: PST 12:13
PROVIDERS: Visit Provider Podiatrist Foot & Ankle Surgery
DX: Z01.810 Encounter for preprocedural cardiovascular examination (principal); Z01.818 Encounter for other preprocedural examination; M72.2 Plantar fascial fibromatosis; M21.861 Other specified acquired deformities of right lower leg
CPT/HCPCS: 93005; G0463

== ENCOUNTER 2023-12-10 06:26 | Day surgery (SDC) | payer OTHER, SELFPAY ==
[2023-11-26 12:43] VITALS: BP 116/75; PULSE 55; RESP 14; TEMP 36.4; O2SAT 98; BMI 26.6
[2023-12-10] VITALS (10 sets, daily range): BP systolic 114–126; BP diastolic 56–72; PULSE 61–76; RESP 12–18; TEMP 36.5–36.6; O2SAT 96–99; BMI 26.9
--- OUTSIDE RECORDS SUMMARY | 2023-12-10 06:29 | XMS_ITS | CCD ---
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 Name Role Phone DR AHMET NEVAREZ Admitting Unavailable DR AHMET NEVAREZ Attending Unavailable BOO, DR TUTTLE Primary Care Unavailable DR AHMET NEVAREZ Consulting Unavailable [place]is [place] Primary Care Unavailable Rod Matute Attending Unavailable Rod Matute Admitting Unavailable Pura Tristan Unavailable Allergies Allergy Classification Reported Allergen(s) Allergy Type Date of Onset Reaction(s) Facility (1 source) Sulfonamides (Antibiotic) Drug allergy (disorder) [address] [place] [address] Repository (1 source) Sulfacetamide / Sulfur Drug Allergy [facility] Other Medications Current Medications Medication Drug Class(es) [...] (COVID-19) RNA VY+probe Ql (Unsp spec) Positive [facility] Other COVID + FLU Quick Testing Negative [facility] Other MM screening mammo BI w/CADo n 03-30-2023 MM screening mammo BI w/CAD [facility] [place] [address] [place] [address] Mammography Report Signed Patient: Catalina Hassan MR#: [id number] : 1975 Acct:[id number] Age/Sex: 47 / F ADM Date: 03/30/23 Loc: [place] Room: Type: [facility] Attending Dr: Rod Matute DO Copies to: [...] Antonio Brody M.D.03/30/2023 2:06 PM Dictation Location: [facility] Transcribed By: [facility] 03/30/23 140 Dictated By: Antonio Brody II, MD 03/30/231400 Signed By: 03/30/23 140 [facility] C3 and C4 COMPLEMENTon 05-18 Complement C3, Serum 89 mg/dL Normal 82-167 [facility] Comment on above: Performed By: #### CSUITE #### [facility] [address] [place], [place] [address] Ivan Cassia Complement C4, Serum 13 mg/dL Normal 12-38 [facility] Comment on above: Performed By: #### CSUITE #### [facility] [address] [place], [place] [address] Ivan Cassia CBC AUTO DIFFon 05-17-2021 BASO # 0.0 103/ul Normal 0.0-0.1 [facility] Comment on above: Performed By: #### CBC #### [facility] [address] [place], [place] [address] Ivan Cassia Basophils/100 WBC (Bld) 0.8 % Normal 0.2-2.0 [facility] Comment on above: Performed By: #### CBC #### [facility] [address] [place], [place] [id number] Ivan Cassia EO # 0.0 103/ul Normal 0.0-0.7 [facility] Comment on above: Performed By: #### CBC #### [facility] [address] [place] [address] Ivan Cassia Eosinophils/100 WBC (Bld) 1.0 % Normal 0.9-7.0 [facility] Comment on above: Performed By: #### CBC #### [facility] [address] [place] [address] Ivan Cassia Erythrocyte distribution width (RBC) [Ratio] 12.5 % Normal 11.0-15.0 [facility] Comment on above: Performed By: #### CBC #### [facility] [address] [place] [address] Ivan Cassia Hematocrit (Bld) [Volume fraction] 40.7 % Normal 36.0-48.0 [facility] Comment on above: Performed By: #### CBC #### [facility] [address] [place] [address] Ivan Cassia Hemoglobin (Bld) [Mass/Vol] 13.7 g/dL Normal 12.0-16.0 [facility] Comment on above: Performed By: #### CBC #### [facility] [address] [place] [address] Ivan Cassia IG # 0.01 10e3/ul Normal 0.00-0.03 [facility] Comment on above: Performed By: #### CBC #### [facility] [address] [place] [address] Ivan Cassia IG % 0.3 % Normal 0.0-0.5 [facility] Comment on above: Performed By: #### CBC #### [facility] [address] [place] [address] Ivan Cassia LYMPH # 1.4 103/ul Normal 1.2-3.8 [facility] Comment on above: Performed By: #### CBC #### [facility] [address] [place], [place] [id number] Ivan Cassia Lymphocytes/100 WBC (Bld) 36.5 % Normal 20.5-60.0 [facility] Comment on above: Performed By: #### CBC #### [facility] [address] [place] [address] Ivan Antony MANUAL DIFF REQ NO Normal [facility] Comment on above: Performed By: #### CBC #### [facility] [address] [place] [address] Ivansteffen Antony MCH (RBC) [Entitic mass] 32.0 pg Normal 26.7-34.0 [facility] Comment on above: Performed By: #### CBC #### [facility] [address] [place] [address] Ivansteffen Antony MCHC (RBC) [Mass/Vol] 33.7 g/dL Normal 29.9-35.2 [facility] Comment on above: Performed By: #### CBC #### [facility] [address] [place] [address] Ivan Cassia MCV (RBC) [Entitic vol] 95.1 fL Normal 81.0-99.0 [facility] Comment on above: Performed By: #### CBC #### [facility] [address] [place] [address] Ivan Cassia MONO # 0.4 103/ul Normal 0.3-0.8 [facility] Comment on above: Performed By: #### CBC #### [facility] [address] [place] [address] Ivan Cassia Monocytes/100 WBC (Bld) 10.3 % Normal 1.7-12.0 [facility] Comment on above: Performed By: #### CBC #### [facility] [address] [place] [address] Ivan Cassia NEUT # 2.0 103/ul Normal 1.4-6.5 [facility] Comment on above: Performed By: #### CBC #### [facility] [address] [place] [address] Ivansteffen Antony Neutrophils/100 WBC (Bld) 51.1 % Normal 43.0-75.0 [facility] Comment on above: Performed By: #### CBC #### [facility] [address] [place] [address] Ivan Antony Platelet mean volume (Bld) [Entitic vol] 10.2 fL Normal 9.5-13.5 [facility] Comment on above: Performed By: #### CBC #### [facility] [address] [place] [address] Ivan Quinteroen PLT 196 103/ul Normal 150-450 [facility] Comment on above: Performed By: #### CBC #### [facility] [address] [place] [address] Ivansteffen Quinteroen RBC 4.28 106/ul Normal 4.20-5.40 [facility] Comment on above: Performed By: #### CBC #### [facility] [address] [place] [address] Ivan Antony WBC 3.9 103/ul Critically low 4.0-11.0 [facility] Comment on above: Performed By: #### CBC #### [facility] [address] [place] [address] Ivan Antony CREATININEon 05-17-2021 Creatinine [Mass/Vol] 0.96 mg/dL Normal 0.52-1.04 [facility] Comment on above: Performed By: #### CRP, CREA #### [facility] [address] [place] [address] Ivansteffen Quinteroen EGFR-AF GREEK >60 Normal >=60 [facility] Comment on above: Performed By: #### CRP, CREA #### [facility] [address] [place] [address] Ivansteffen Quinteroen EGFR-NON AF GREEK >60 Normal >=60 [facility] Comment on above: Performed By: #### CRP, CREA #### [facility] [address] [place] [address] Ivan Antony CRPon 05-17-2021 CRP [Mass/Vol] mg/L Normal <=1.0 [facility] Comment on above: Performed By: #### CRP, CREA #### [facility] [address] [place] [address] Ivan Cassia SED RATE WESTERGRENon 2020 SED RATE 4 mm/hr Normal <=20 [facility] Comment on above: Performed By: #### SEDR #### [facility] [address] [place] [address] Ivan Cassia UA RANDOM W/MICROSCOPICon BACTERIA TRACE Abnormal NONE SEEN [facility] Comment on above: Performed By: #### UAMIC #### [facility] [address] [place] [address] Ivan Cassia Bilirubin Ql (U) Negative Normal NEGATIVE [facility] Comment on above: Performed By: #### UAMIC #### [facility] [address] [place] [address] Ivan Cassia CAST NONE SEEN Normal NONE SEEN [facility] Comment on above: Performed By: #### UAMIC #### [facility] [address] [place] [address] Ivan Cassia Clarity (U) SL CLOUDY Abnormal CLEAR [facility] Comment on above: Performed By: #### UAMIC #### [facility] [address] [place] [address] Ivan Cassia Color (U) LT. YELLOW Normal YELLOW [facility] Comment on above: Performed By: #### UAMIC #### [facility] [address] [place] [address] Ivan Cassia Crystals LM Nom (Urine sed) NONE SEEN Normal NONE SEEN [facility] Comment on above: Performed By: #### UAMIC #### [facility] [address] [place] [address] Ivan Cassia Epithelial cells LM Ql (Urine sed) RARE Normal NONE SEEN /RARE [facility] Comment on above: Performed By: #### UAMIC #### [facility] [address] [place] [address] Ivan Cassia Glucose Ql (U) Negative Normal NEGATIVE [facility] Comment on above: Performed By: #### UAMIC #### [facility] [address] [place] [address] Ivan Cassia Hemoglobin Ql (U) Negative Normal NEGATIVE [facility] Comment on above: Performed By: #### UAMIC #### [facility] [address] [place] [address] Ivan Cassia Ketones Ql (U) Negative Normal NEGATIVE [facility] Comment on above: Performed By: #### UAMIC #### [facility] [address] [place] [address] Ivan Cassia LEUKOCYTES Negative Normal NEGATIVE [facility] Comment on above: Performed By: #### UAMIC #### [facility] [address] [place] [address] Ivan Cassia MUCOUS NONE SEEN Normal NONE SEEN [facility] Comment on above: Performed By: #### UAMIC #### [facility] [address] [place] [address] Ivan Cassia Nitrite Ql (U) Negative Normal NEGATIVE [facility] Comment on above: Performed By: #### UAMIC #### [facility] [address] [place] [address] Ivan Cassia pH (U) 7.0 [pH] Normal 5-9 [facility] Comment on above: Performed By: #### UAMIC #### [facility] [address] [place] [address] Ivan Cassia RBC NONE SEEN Abnormal 0-2 [facility] Comment on above: Performed By: #### UAMIC #### [facility] [address] [place] [address] Ivan Cassia SPEC GRAVITY <=1.005 Abnormal 1.005-<=1.0 25 [facility] Comment on above: Performed By: #### UAMIC #### [facility] [address] [place] [address] Ivan Cassia UA PROTEIN Negative Normal NEGATIVE/ TRACE [facility] Comment on above: Performed By: #### UAMIC #### [facility] [address] [place] [address] Ivan Cassia Urobilinogen Qn (U) 0.2 {Edgard'U}/dL Normal 0.2 - 1.0 [facility] Comment on above: Performed By: #### UAMIC #### [facility] [address] [place] [address] Ivan Antony WBC NONE SEEN Normal NONE SEEN [facility] Comment on above: Performed By: #### UAMIC #### [facility] [address] [place] [address] Ivan Antony PROGRESSon 08-27-2018 Protein mass conc HNO ID: [id number]: [facility] ProviderService: (none)Author Type: PhysicianType: Progress NotesFiled: 08/27/2018 6:27 AMNote Text:null (CCF:Not available [id number])Visit Summary for Catalina Hassan - Gender: Female - Date of :1975 ( ) Date: - Duration: 5 minutesPatient: Catalina Crook JenniferProvider: Justus PedrazaPatient Contact [id number] [facility]; [place] [id number] Topicspotential sinus infection, lots of snot, throat is sore. : other [AddedBy: Self - 2018-08-27]Triage QuestionsPlease provide your current address. We need this on file in case of amedical emergency.Answer [[phone] [phone]]Conversation Transcripts [Notification] Practice Staff, Global Staff, will [...] Family Hafsa Hickman.[Notification] Catalina Hassan is located [facility]Notification] Catalina Hassan has shared healthhistory...[Notification] A phone visit is being added.[Notification]Justus Pedraza has added a diagnosis/procedure code (see the VisitNotes tab).[Notification] Justus Pedraza has added adiagnosis/procedure code (see the Visit Notes tab).[Notification] Thephone visit has ended.DiagnosisAcute upper respiratory infection, unspecified Value: J06.9Code: HMB-48-OTXjvnoqjxenNdpqf: 13182 Code: CPT-4 ONLINE E/M BY PHYS/QHPMedications PrescribedPlaquenilFrequency [...] questions or problems with the prescription, call [phone] assistance. 2.Please re-connect for another online visit [...] basis.Electronically signed by: Justus Pedraza( ) Normal [facility] Vital Signs Date Time Vital Sign Value Performing Clinician Facility 09-27-2023 14:00-0500 Body height 167.64 cm Pura Kun Other [facility] Other 09-27-2023 14:00-0500 Body mass index (BMI) [Ratio] 26.14 kg/m2 [facility] Other [facility] Other 09-27-2023 14:00-0500 Body temperature 97.8 [degF] [facility] Other [facility] Other 09-27-2023 14:00-0500 Body weight 73.48 kg Pura Kun Other [facility] Other 09-27-2023 14:00-0500 Respiratory rate 18 /min Pura [facility] Other [facility] Other 09-27-2023 14:00-0500 SaO2% (BldA) [Mass fraction] 98 % [facility] Other [facility] Other Encounters Encounter Date Encounter Type Care Provider Facility Start: 09-27-2023 End: 09-27-2023 ambulatory Pura Kun Other [facility] Other Start: 09-27-2023 Office outpatient vi sit 15 minutes Pura Kun [facility] Start: 03-30-2023 End: 03-30-2023 ambulatory Clovis Cuba Facility:[facility] Start: 05-17-2021 End: 05-18-[address] AHMET NEVAREZ Facility: Payers Date Payer Category Payer Self-pay 1975 Unknown [id number] 1957 Unknown [id number] Unknown [id number] Social History Date Type Detail Facility Sex Assigned At [facility] Other Evaluation note 09-27-2023 Note Date & [...] follow boxx instructions. [facility] if symptoms persist, go to the ER if you develop chest pain, shortness of breath, difficulty breathing or pain with deep breathing. Sep, Acute bilateral otitis media (ICD-10 - H66.93) [facility] Other History general Narrative - Reported Note Date & Type Note Facility History general Narrative - Reported Type Medical History Lupus Surgical History Hospitalization History see above surgical histo ry [facility] Other Summary Purpose Family History No Family History Records FoundNo Family History Records FoundNo Family History Records Found Advance Directives No Advanced Directives Records FoundNo Advanced Directives Records FoundNo Advanced Directives Records Found Additional Source Comments INFORMATION SOURCE (unrecogn ized section and content) DATE CREATED AUTHOR 09/20/2018 [facility] DATE CREATED AUTHOR AUTHOR'S ORGANIZ ATION 07/06/2021 [facility] DATE CREATED AUTHOR AUTHOR'S ORGANIZ ATION 03/31/2023 [facility] REASON FOR VISIT (unrecogniz ed section [...] BE BASED ON THE PRIMARY CLINICAL RECORDS. [facility]. provides no warranty or guarantee of the accuracy or completeness of information in this document.
[2023-12-10 06:52] LABS: Glucometer 94 mg/dL (74-106)
[2023-12-10 06:59] LABS: HCG Qualitative NEGATIVE (NEGATIVE)
[2023-12-10] MEDS: CEFAZOLIN SODIUM/DEXTROSE,ISO 2 GM/50 ML PIGGYBACK IV (07:35)
[2023-12-10] MEDS: BUPIVACAINE HCL 0.5% PF 50 MG/10 ML VIAL 20 ML INJ (08:07)
[2023-12-10] MEDS: BETAMETHASONE ACE/BETAMETHASONE SOD PHOS 30 MG/5 ML 12 MG IM (08:24)
[2023-12-10] MEDS: LACTATED RINGER'S SOLUTION 1,000 ML 50 ML IV (08:26)
[2023-12-10 08:51] LABS: Glucometer 104 mg/dL (74-106)
--- NOTE | 2023-12-10 09:00 | PM.ORONB ---
Brief Operative Note Date of procedure: 12/10/23 Pre-op diagnosis: plantar fasciitis and equinus Post-op diagnosis: same as pre-op Procedure: PROCEDURES PERFORMED: right endoscopic plantar fasciotomy and gastrocnemius recession INTRAOPERATIVE FINDINGS: plantar fascia was thickened and consistent with chronic plantar fasciitis. Ankle joint dorsiflexion is limited to neutral with the knee extended which improved with gastrocnemius and soleal recession. PROCEDURE IN DETAIL: Patient was identified in pre op and consent was reviewed. Correct side and site were identified and marked. Pre-op antibiotics were started. Patient was brought to OR suite and place on table in a supine position. General anesthesia was administered. Tourniquet applied. Operative extremity was prepped and draped in usual sterile fashion. Formal time-out was performed and the foot/ankle were exsanguinated and tourniquet inflated. A longitudinal incision over the medial aspect of the calf two finger breadths posterior to the posterior aspect of tibia was performed. Combination sharp and blunt dissection with all bleeders being coagulated gained access to the gastrocnemius aponeurosis. Once the aponeurosis was isolated a speculum was inserted from the medial to lateral position just superficial to the aponeurosis. The speculum allowed full visualization of the aponeurosis and the foot was held in maximal dorsiflexed position. A fifteen blade was used to transversely incise the gastrocnemius fascia to two separate location (one proximal and one distal) followed by release of the soleus fascia. 10 degrees of ankle joint dorsiflexion was obtained. The area was flushed with copious sterile saline and skin was closed in layers. Stab incision over the medial aspect of the in-step at the glabrous skin junction was used followed by blunt dissection and the medial band of the plantar fascia was identified. Trochar and cannula were then placed medial to lateral. A lateral stab incision was made to allow passage of the trochar and cannula. Camera was inserted into the lateral portal and a hook blade was placed into the medial portal. 50% of the plantar fascia was released and healthy muscle was noted. The site was flushed with saline and instrumentation was removed. Closure with nylon suture was then undertaken. A dry sterile dressing was placed followed by CAM boot. Patient tolerated the procedure and anesthesia well and was transferred to the recovery room with vital signs stable and brisk capillary refill to the toes. POSTOPERATIVE PLAN:Discharge home under family's care Post op instructions provided verbally and written prescription(s) were placed in chart Weightbearing as tolerated in cam boot for three weeks Patient should sleep in cam boot or night splint Follow-up in 1-3 weeks Anesthesia: General-LMA Surgeon: Andres Bianchi Diesel Engine Inspector: Hossein Madrigal Estimated blood loss (mL): 10 Pathology: none sent Condition: stable Disposition: PACU
[2023-12-10] MEDS: OXYCODONE HCL/ACETAMINOPHEN 5MG/325MG 1 TAB PO (10:00)
== END 2023-12-10 10:50 | disposition home or self-care (01) ==
PROVIDERS: PCP Family Medicine; Visit Provider Podiatrist Foot & Ankle Surgery
PROC: (CPT 1464; principal; 2023-12-10 07:30)
DX: M72.2 Plantar fascial fibromatosis (principal); M21.861 Other specified acquired deformities of right lower leg; Z86.16 Personal history of COVID-19
CPT/HCPCS: 27687; 29893; 36415; 82948; 84703; J0702; J1094; J2704

== ENCOUNTER 2023-12-16 11:46 | Outpatient (OUT) | payer OTHER, SELFPAY ==
--- NOTE | 2023-12-16 11:52 | US_ITS ---
The [address] [address] Patient Name: JOHANN HASSAN MRN: [id number] date: 1975 Sex: F Assigned Patient Location: [facility] Current Patient Location: [facility] Accession/Order Number: [id number] Exam Date: 12/16/2023 11:55 Report Date: 12/16/2023 12:51 At the request of: KYLE HAND Procedure: US venous doppler LE RT EXAM: US venous doppler LE RT HISTORY: Right Leg Pain right leg swelling. COMPARISON: None. TECHNIQUE: Duplex grayscale and color Doppler imaging with compression deep veins right leg groin to calf. FINDINGS: Positive for DVT below the knee mid calf noncompressible peroneal vein without flow. Extends to the distal peroneal vein. Visualized deep veins otherwise normal with normal flow and compressibility. No any DVT above the knee. Flow seen in the right external iliac, common femoral, profunda femoral, throughout the femoral vein thigh and popliteal vein at the knee. Flow and compressibility anterior tibial and posterior tibial veins. Flow in the saphenous vein in the groin and proximal thigh area. US/US venous doppler LE RT IMPRESSION: Limited [id number] DVT involving the peroneal vein mid to distal calf area. Other visualized veins normal, no DVT is seen above the knee. Submitted to the stat call Queue Electronically authenticated by: PAYTON VALLE Date: 12/16/2023 12:51
--- OUTSIDE RECORDS SUMMARY | 2023-12-16 12:09 | XMS_ITS | CCD ---
Author Name Unknown Address [address] [place] [address] Organization [facility] Care Team Providers Care Frame Coverer Name Role Phone DR AHMET NEVAREZ Admitting Unavailable DR AHMET NEVAREZ Attending Unavailable BOO, DR TUTTLE Primary Care Unavailable DR AHMET NEVAREZ Consulting Unavailable [facility] [place] Primary [facility] Unavailable Rod Matute Attending Unavailable Rod Matute Admitting Unavailable Pura Tristan Unavailable Allergies Allergy Classification Reported Allergen(s) Allergy Type Date of Onset Reaction(s) Facility (1 source) Sulfonamides (Antibiotic) Drug allergy (disorder) [address] [place] [address] Repository (1 source) Sulfacetamide / Sulfur [facility] Other Medications Current Medications Medication Drug Class(es) [...] (COVID-19) RNA VY+probe Ql (Unsp spec) Positive [facility] Other COVID + FLU Quick Testing Negative [facility] Other MM screening mammo BI w/CADo n 03-30-2023 MM screening mammo BI w/CAD [facility] [place] [address] [place] [address] Mammography Report Signed Patient: Catalina Hassan MR#: [id number] : 1975 Acct:[id number] Age/Sex: 47 / F ADM Date: 03/30/23 Loc: ID Room: Type: [facility] Attending Dr: Rod Matute DO Copies [...] Antonio Brody M.D.03/30/2023 2:06 PM Dictation Location: [facility] Transcribed By: [facility] 03/30/23 140 Dictated By: Antonio Brody II, MD 03/30/231400 Signed By: 03/30/23 140 [facility] C3 and C4 COMPLEMENTon 05-18 Complement C3, Serum 89 mg/dL Normal 82-167 [facility] Comment on above: Performed By: #### CSUITE #### [facility] [address], [place] [address] Ivan Cassia Complement C4, Serum 13 mg/dL Normal 12-38 [facility] Comment on above: Performed By: #### CSUITE #### [facility] [address], [place] [address] Ivan Cassia CBC AUTO DIFFon 05-17-2021 BASO # 0.0 103/ul Normal 0.0-0.1 [facility] Comment on above: Performed By: #### CBC #### [facility] [address], [place] [address] Ivan Cassia Basophils/100 WBC (Bld) 0.8 % Normal 0.2-2.0 [facility] Comment on above: Performed By: #### CBC #### [facility] [address] [place], [place] [id number] Ivan Cassia EO # 0.0 103/ul Normal 0.0-0.7 [facility] Comment on above: Performed By: #### CBC #### [facility] [address] [place] [address] Ivan Cassia Eosinophils/100 WBC (Bld) 1.0 % Normal 0.9-7.0 [facility] Comment on above: Performed By: #### CBC #### [facility] [address] [place] [address] Ivan Cassia Erythrocyte distribution width (RBC) [Ratio] 12.5 % Normal 11.0-15.0 [facility] Comment on above: Performed By: #### CBC #### [facility] [address] [place] [address] Ivan Cassia Hematocrit (Bld) [Volume fraction] 40.7 % Normal 36.0-48.0 [facility] Comment on above: Performed By: #### CBC #### [facility] [address] [place] [address] Ivan Cassia Hemoglobin (Bld) [Mass/Vol] 13.7 g/dL Normal 12.0-16.0 [facility] Comment on above: Performed By: #### CBC #### [facility] [address] [place] [address] Ivan Cassia IG # 0.01 10e3/ul Normal 0.00-0.03 [facility] Comment on above: Performed By: #### CBC #### [facility] [address] [place] [address] Ivan Cassia IG % 0.3 % Normal 0.0-0.5 [facility] Comment on above: Performed By: #### CBC #### [facility] [address] [place] [address] Ivan Cassia LYMPH # 1.4 103/ul Normal 1.2-3.8 [facility] Comment on above: Performed By: #### CBC #### [facility] [address] [place], [place] [id number] Ivan Cassia Lymphocytes/100 WBC (Bld) 36.5 % Normal 20.5-60.0 [facility] Comment on above: Performed By: #### CBC #### [facility] [address] [place] [address] Ivan Antony MANUAL DIFF REQ NO Normal [facility] Comment on above: Performed By: #### CBC #### [facility] [address] [place] [address] Ivansteffen Antony MCH (RBC) [Entitic mass] 32.0 pg Normal 26.7-34.0 [facility] Comment on above: Performed By: #### CBC #### [facility] [address] [place] [address] Ivansteffen Antony MCHC (RBC) [Mass/Vol] 33.7 g/dL Normal 29.9-35.2 [facility] Comment on above: Performed By: #### CBC #### [facility] [address] [place] [address] Ivan Cassia MCV (RBC) [Entitic vol] 95.1 fL Normal 81.0-99.0 [facility] Comment on above: Performed By: #### CBC #### [facility] [address] [place] [address] Ivan Cassia MONO # 0.4 103/ul Normal 0.3-0.8 [facility] Comment on above: Performed By: #### CBC #### [facility] [address] [place] [address] Ivan Cassia Monocytes/100 WBC (Bld) 10.3 % Normal 1.7-12.0 [facility] Comment on above: Performed By: #### CBC #### [facility] [address] [place] [address] Ivan Cassia NEUT # 2.0 103/ul Normal 1.4-6.5 [facility] Comment on above: Performed By: #### CBC #### [facility] [address] [place] [address] Ivansteffen Antony Neutrophils/100 WBC (Bld) 51.1 % Normal 43.0-75.0 [facility] Comment on above: Performed By: #### CBC #### [facility] [address] [place] [address] Ivan Antony Platelet mean volume (Bld) [Entitic vol] 10.2 fL Normal 9.5-13.5 [facility] Comment on above: Performed By: #### CBC #### [facility] [address] [place] [address] Ivan Quinteroen PLT 196 103/ul Normal 150-450 [facility] Comment on above: Performed By: #### CBC #### [facility] [address] [place] [address] Ivansteffen Quinteroen RBC 4.28 106/ul Normal 4.20-5.40 [facility] Comment on above: Performed By: #### CBC #### [facility] [address] [place] [address] Ivan Antony WBC 3.9 103/ul Critically low 4.0-11.0 [facility] Comment on above: Performed By: #### CBC #### [facility] [address] [place] [address] Ivan Antony CREATININEon 05-17-2021 Creatinine [Mass/Vol] 0.96 mg/dL Normal 0.52-1.04 [facility] Comment on above: Performed By: #### CRP, CREA #### [facility] [address] [place] [address] Ivansteffen Quinteroen EGFR-AF [place] >60 Normal >=60 [facility] Comment on above: Performed By: #### CRP, CREA #### [facility] [address] [place] [address] Ivansteffen Quinteroen EGFR-NON AF [place] >60 Normal >=60 [facility] Comment on above: Performed By: #### CRP, CREA #### [facility] [address] [place] [address] Ivan Antony CRPon 05-17-2021 CRP [Mass/Vol] mg/L Normal <=1.0 [facility] Comment on above: Performed By: #### CRP, CREA #### [facility] [address] [place] [address] Ivan Cassia SED RATE WESTERGRENon 2020 SED RATE 4 mm/hr Normal <=20 [facility] Comment on above: Performed By: #### SEDR #### [facility] [address] [place] [address] Ivan Cassia UA RANDOM W/MICROSCOPICon BACTERIA TRACE Abnormal NONE SEEN [facility] Comment on above: Performed By: #### UAMIC #### [facility] [address] [place] [address] Ivan Cassia Bilirubin Ql (U) Negative Normal NEGATIVE [facility] Comment on above: Performed By: #### UAMIC #### [facility] [address] [place] [address] Ivan Cassia CAST NONE SEEN Normal NONE SEEN [facility] Comment on above: Performed By: #### UAMIC #### [facility] [address] [place] [address] Ivan Cassia Clarity (U) SL CLOUDY Abnormal CLEAR [facility] Comment on above: Performed By: #### UAMIC #### [facility] [address] [place] [address] Ivan Cassia Color (U) LT. YELLOW Normal YELLOW [facility] Comment on above: Performed By: #### UAMIC #### [facility] [address] [place] [address] Ivan Cassia Crystals LM Nom (Urine sed) NONE SEEN Normal NONE SEEN [facility] Comment on above: Performed By: #### UAMIC #### [facility] [address] [place] [address] Ivan Cassia Epithelial cells LM Ql (Urine sed) RARE Normal NONE SEEN /RARE [facility] Comment on above: Performed By: #### UAMIC #### [facility] [address] [place] [address] Ivan Cassia Glucose Ql (U) Negative Normal NEGATIVE [facility] Comment on above: Performed By: #### UAMIC #### [facility] [address] [place] [address] Ivan Cassia Hemoglobin Ql (U) Negative Normal NEGATIVE [facility] Comment on above: Performed By: #### UAMIC #### [facility] [address] [place] [address] Ivan Cassia Ketones Ql (U) Negative Normal NEGATIVE [facility] Comment on above: Performed By: #### UAMIC #### [facility] [address] [place] [address] Ivan Cassia LEUKOCYTES Negative Normal NEGATIVE [facility] Comment on above: Performed By: #### UAMIC #### [facility] [address] [place] [address] Ivan Cassia MUCOUS NONE SEEN Normal NONE SEEN [facility] Comment on above: Performed By: #### UAMIC #### [facility] [address] [place] [address] Ivan Cassia Nitrite Ql (U) Negative Normal NEGATIVE [facility] Comment on above: Performed By: #### UAMIC #### [facility] [address] [place] [address] Ivan Cassia pH (U) 7.0 [pH] Normal 5-9 [facility] Comment on above: Performed By: #### UAMIC #### [facility] [address] [place] [address] Ivan Cassia RBC NONE SEEN Abnormal 0-2 [facility] Comment on above: Performed By: #### UAMIC #### [facility] [address] [place] [address] Ivan Cassia SPEC GRAVITY <=1.005 Abnormal 1.005-<=1.0 25 [facility] Comment on above: Performed By: #### UAMIC #### [facility] [address] [place] [address] Ivan Cassia UA PROTEIN Negative Normal NEGATIVE/ TRACE [facility] Comment on above: Performed By: #### UAMIC #### [facility] [address] [place] [address] Ivan Cassia Urobilinogen Qn (U) 0.2 {Edgard'U}/dL Normal 0.2 - 1.0 [facility] Comment on above: Performed By: #### UAMIC #### [facility] [address] [place] [address] Ivan Antony WBC NONE SEEN Normal NONE SEEN [facility] Comment on above: Performed By: #### UAMIC #### [facility] [address] [address] Ivan Antony PROGRESSon 08-27-2018 Protein mass conc HNO ID: [id number]: [facility] ProviderService: (none)Author Type: PhysicianType: Progress NotesFiled: 08/27/2018 6:27 AMNote Text:null (CCF:Not available AMW:[id number])Visit Summary for Catalina Hassan - Gender: Female - Date of :1975 ( ) Date: - Duration: 5 minutesPatient: Catalina Crook JenniferProvider: Justus PedrazaPatient Contact [id number] [facility]; [place] [id number] Topicspotential sinus infection, lots of snot, throat is sore. : other [AddedBy: Self - 2018-08-27]Triage QuestionsPlease provide your current address. We need this on file in case of amedical emergency.Answer [[address] [phone]]Conversation Transcripts [Notification] Practice Staff, Global Staff, will [...] Family Hafsa Hickman.[Notification] Catalina Hassan is located [facility].[Notification] Catalina Hassan has shared healthhistory...[Notification] A phone visit is being added.[Notification]Justus Pedraza has added a diagnosis/procedure code (see the VisitNotes tab).[Notification] Justus Pedraza has added adiagnosis/procedure code (see the Visit Notes tab).[Notification] Thephone visit has ended.DiagnosisAcute upper respiratory infection, unspecified Value: J06.9Code: [id number]: [id number] Code: CPT-4 ONLINE E/M BY PHYS/QHPMedications PrescribedPlaquenilFrequency [...] questions or problems with the prescription, call [phone] assistance. 2.Please re-connect for another online visit [...] basis.Electronically signed by: Justus Pedraza( ) Normal [facility] Vital Signs Date Time Vital Sign Value Performing Clinician Facility 09-27-2023 14:00-0500 Body height 167.64 cm Pura Kun Other [facility] Other 09-27-2023 14:00-0500 Body mass index (BMI) [Ratio] 26.14 kg/m2 Pura Kun Other [facility] Other 09-27-2023 14:00-0500 Body temperature 97.8 [degF] Pura Kun Other [facility] Other 09-27-2023 14:00-0500 Body weight 73.48 kg Pura Kun Other [facility] Other 09-27-2023 14:00-0500 Respiratory rate 18 /min Pura Kun Other [facility] Other 09-27-2023 14:00-0500 SaO2% (BldA) [Mass fraction] 98 % Pura Kun Other [facility] Other Encounters Encounter Date Encounter Type Care Provider Facility Start: 09-27-2023 End: 09-27-2023 ambulatory Pura Kun Other [facility] Other Start: 09-27-2023 Office outpatient vi sit 15 minutes Pura Kun [facility] Start: 03-30-2023 End: 03-30-2023 ambulatory Cl[place]is [place] Facility:[facility] Start: 05-17-2021 End: 05-18-[address] AHMET NEVAREZ Facility: Payers Date Payer Category Payer Self-pay 1975 Unknown [id number] 1957 Unknown [id number] Unknown [id number] Social History Date Type Detail Facility Sex Assigned At [facility] Other Evaluation note 09-27-2023 Note Date & [...] follow boxx instructions. Follow up with your [facility] care doctor if symptoms persist, go to the ER if you develop chest pain, shortness of breath, difficulty breathing or pain with deep breathing. Sep, Acute bilateral otitis media (ICD-10 - H66.93) [facility] Other History general Narrative - Reported Note Date & Type Note Facility History general Narrative - Reported Type Medical History Lupus Surgical History Hospitalization History see above surgical histo ry [facility] Other Summary Purpose Family History No Family History Records FoundNo Family History Records FoundNo Family History Records Found Advance Directives No Advanced Directives Records FoundNo Advanced Directives Records FoundNo Advanced Directives Records Found Additional Source Comments INFORMATION SOURCE (unrecogn ized section and content) DATE CREATED AUTHOR 09/20/2018 [facility] DATE CREATED AUTHOR AUTHOR'S ORGANIZ ATION 07/06/2021 [facility] DATE CREATED AUTHOR AUTHOR'S ORGANIZ ATION 03/31/2023 [facility] REASON FOR VISIT (unrecogniz ed section [...] BE BASED ON THE PRIMARY CLINICAL RECORDS. [facility]. provides no warranty or guarantee of the accuracy or completeness of information in this document.
== END 2023-12-16 11:47 | disposition home or self-care (01) ==
LOC: RAD 11:47
PROVIDERS: PCP Family Medicine; Visit Provider Podiatrist Foot & Ankle Surgery
DX: R09.89 Other specified symptoms and signs involving the circulatory and respiratory systems (principal); M79.661 Pain in right lower leg; I82.4Z1 Acute embolism and thrombosis of unspecified deep veins of right distal lower extremity
CPT/HCPCS: 93971

== ENCOUNTER 2024-02-09 14:48 | Outpatient (RCR) | payer OTHER, SELFPAY | END 2024-04-08 16:35 | disposition home or self-care (01) | LOC: PT 14:48 | PROVIDERS: PCP Family Medicine; Visit Provider Podiatrist Foot & Ankle Surgery | DX: M72.2 Plantar fascial fibromatosis (principal) | CPT/HCPCS: 20561; 97035; 97110; 97140; 97161 ==

== ENCOUNTER 2024-09-09 10:17 | Outpatient (OUT) | payer OTHER, SELFPAY ==
--- OUTSIDE RECORDS SUMMARY | 2024-09-09 10:19 | XMS_ITS | CCD ---
Author Organization [facility] ion [facility] Care Team Providers Care Power Barker Operator Name Role Phone DR AHMET NEVAREZ Admitting Unavailable DR AHMET NEVAREZ Attending Unavailable BOO, DR TUTTLE Primary Care Unavailable DR AHMET NEVAREZ Consulting Unavailable Kun, Pura Unavailable MD Clovis Haddad Primary Care Provider Self, Referral Attending Provider Unavailable DO Rod Priest Referring Provider Self, Referral Admitting Unavailable Self, Referral Attending Unavailable Rod Priest Referring Unavailable Clovis Haddad Primary Care Unavailable Clovis Haddad MD Primary Care Provider CLOVIS HADDAD Attending Unavailable CLOVIS HADDAD Attending ROD Vaz Attending Unavailable CLOVIS HADDAD Attending Unavailable SUKHJINDER EVANGELISTA Attending Unavailable ROD PRIEST Referring Unavailable CLOVIS HADDAD Attending Clovis Lazcano MD Primary Care Provider [phone] Allergies Allergy Classification Reported Allergen(s) Allergy Type Date of Onset Reaction(s) Facility (1 source) Sulfacetamide / Sulfur Drug Allergy [facility] [employer] Other (2 sources) Sulfacetamide; Translations: [sulfacetamide] Drug Allergy 3 [facility] (2 sources) Sulfonamides (Antibiotic); Translations: [Sulfa (Sulfonamide Antibiotics)] Allergy to substance 8 [facility] (2 sources) Sulfur; Translations: [sulfur] Drug Allergy 3 [facility] (4 sources) Sulfonamides (Antibiotic) Propensity to adverse reactions 3 [facility] Medications Current Medications Medication Drug Class(es) Dates Sig (Normalized) Sig (Original) aspirin 81 mg delayed release oral tablet (4 sources) Platelet Aggregation Inhibitor, Nonsteroidal Anti-inflammatory Drug take 1 tablet by mouth three times weekly aspirin 81 MG EC tablet Take 81 mg by mouth 3 (three) times a week Active azithromycin 250 mg oral tablet (1 source) Macrolide Antimicrobial Start: 3 Azithromycin 250 MG Take 2 tablets on first day then 1 tablet daily for 4 days Orally as directed for 5 days Sep, Active hydroxychloroquine sulfate 200 mg oral tablet (2 sources) Antimalarial, Antirheumatic Agent Start: 8 take 1 tablet by mouth twice daily Hydroxychloroquine (Plaquenil) 200 mg Tablet Active 200 MG PO Twice daily December 29, 2017 12:00am Plaquenil Not-Ta rodolfo/PRN Completed/Discontinued Medications Medication Drug Class(es) Dates Sig (Normalized) Sig (Original) amoxicillin 875 mg oral tablet (1 source) Penicillin-class Antibacterial Start: 08-31-2018 take 1 tablet by mouth every twelve hours Amoxicillin 875 MG 1 tablet Orally every 12 hrs for 7 days Aug, Not-Taking/PRN azelastine hydrochloride 0.137 mg/actuat metered dose nasal spray (1 source) Histamine-1 Receptor Antagonist Start: 06-16-2024 End: 07-25-2024 take 1 spray(s) nasal route in the morning azelastine (Astelin) 0.1 % nasal spray Indications: Eustachian tube dysfunction, bilateral Administer 1 spray into each nostril in the morning and 1 spray before bedtime. Use in each nostril as directed. 30 mL 12 06/16/2024 07/25/2024 Discontinued fluticasone propionate 0.05 mg/actuat metered dose nasal spray (1 source) Corticosteroid Start: 08-31-2018 take 1 spray(s) nasal route once daily as needed Fluticasone Propionate 50 MCG/ACT 1 spray in each nostril Nasally Once a day for 21 days Aug, Not-Taking/PRN methylPREDNISolone 4 mg oral tablet (1 source) Corticosteroid Start: 08-31-2018 Medrol (Zachery) 4 MG as directed Orally Aug, Not-Taking/PRN Problems Active Problems Problem Classification Problem Date Documented Da te Episodic/Chronic Joint disorders and dislocations; trauma-related (2 sources) Subluxation complex (vertebral); Translations: [Subluxation complex (vertebral) of rib cage] 09-03-2024 Episodic Other ear and sense organ disorders (1 source) Otitis externa; Translations: [Unspecified otitis externa, unspecified ear] Chronic Other nervous system disorders (4 sources) Difficulty walking; Translations: [Difficulty in walking, not elsewhere classified] Onset: 12-18-2023 12-18-2023 Chronic Other screening for suspected conditions (not mental disorders or infectious disease) (6 sources) Encounter for screening mammogram for malignant neoplasm of breast; Translations: [Patient encounter status] Onset: 04-06-2024 07-25-2024 Episodic Otitis media and related conditions (1 source) Otitis media, unspecified, bilateral Episodic Systemic lupus erythematosus and connective tissue disorders (4 sources) Systemic lupus erythematosus, unspecified; Translations: [SYSTEMIC LUPUS ERYTHMATOSUS UNS] Onset: 05-17-2021 Chronic Past or Other Problems Problem Classification Problem Date Documented Da te Episodic/Chronic Acquired foot deformities (4 sources) Tailor's bunion; Translations: [Bunionette of unspecified foot] Onset: 12-18-2023 12-18-2023 Episodic Unclassified (1 source) Contact with and (suspected) exposure to covid-19 Z20.822 Viral infection (1 source) COVID-19 Results Test Name Value Interpretation Reference Range Facility MM screening mammo BI w/CADo n 04-06-2024 MM screening mammo BI w/CAD [facility] [employer] [address] [place] [address] Mammography Report Signed Patient: Catalina Rodriguez MR#: [id number] : 1975 Acct:[id number] Age/Sex: 48 / F ADM Date: 04/06/24 Loc: [place] Room: Type: [facility] Attending Dr: Referral Self Copies to: MD Rod Garcia DO SELF,REFERRAL Ordering Provider: SELF,REFERRAL Date of Service: 04/06/24 MM/MM screening mammo BI w/CAD: SCREENING CLINICAL DATA: Screening for malignancy. BILATERAL SCREENING MAMMOGRAMS - FULL FIELD DIGITAL WITH TOMOSYNTHESIS AND CAD Tomosynthesis craniocaudal and mediolateral oblique views of both breasts were obtained using low- dose digital technique. Comparison is made to prior studies from 03/30/2023, 03/26/2022, 03/25/2021, and 03/21/2020. This examination was [...] RESULT CODE: 2 Benign Findings(s) DENSITY CODE: 3 (approximately 51-75% glandular) FOLLOW UP: 1YR The false-negative rate of mammography is approximately 10-percent. Management of a palpable abnormality must be based on clinical grounds. Patient was entered into a reminder system with a target due date for the next mammogram. Impression dictated by: Antonio Brody M.D.04/06/2024 10:44 AM Dictation Location: [facility] Transcribed By: [facility] 04/06/24 1044 Dictated By: Antonio Brody II, MD 04/06/24 1039 Signed By: 04/06/24 1044 Normal [facility] COVID + FLU Quick Testingon 09-27-2023 SARS-CoV-2 (COVID-19) RNA VY+probe Ql (Unsp spec) Positive [facility] Other COVID + FLU Quick Testing Negative [facility] Other C3 and C4 COMPLEMENTon 05-18 Complement C3, Serum 89 mg/dL Normal 82-167 [facility] Comment on above: Performed By: #### CSUITE #### [facility] [address] [place], [place] [address] Ivan Antony Complement C4, Serum 13 mg/dL Normal 12-38 [facility] Comment on above: Performed By: #### CSUITE #### [facility] [address] [place], [place] [address] Ivna Antony CBC AUTO DIFFon 05-17-2021 BASO # 0.0 103/ul Normal 0.0-0.1 [facility] Comment on above: Performed By: #### CBC #### [facility] [address] [place], [place] [id number] Ivan Cassia Basophils/100 WBC (Bld) 0.8 % Normal 0.2-2.0 [facility] Comment on above: Performed By: #### CBC #### [facility] [address] [place], [place] [id number] Ivan Cassia EO # 0.0 103/ul Normal 0.0-0.7 [facility] Comment on above: Performed By: #### CBC #### [facility] [address] [place] [address] Ivan Cassia Eosinophils/100 WBC (Bld) 1.0 % Normal 0.9-7.0 [facility] Comment on above: Performed By: #### CBC #### [facility] [address] [place] [address] Ivan Cassia Erythrocyte distribution width (RBC) [Ratio] 12.5 % Normal 11.0-15.0 [facility] Comment on above: Performed By: #### CBC #### [facility] [address] [place] [address] Ivan Cassia Hematocrit (Bld) [Volume fraction] 40.7 % Normal 36.0-48.0 [facility] Comment on above: Performed By: #### CBC #### [facility] [address] [place] [address] Ivan Cassia Hemoglobin (Bld) [Mass/Vol] 13.7 g/dL Normal 12.0-16.0 [facility] Comment on above: Performed By: #### CBC #### [facility] [address] [place] [address] Ivan Cassia IG # 0.01 10e3/ul Normal 0.00-0.03 [facility] Comment on above: Performed By: #### CBC #### [facility] [address] [place] [address] Ivan Cassia IG % 0.3 % Normal 0.0-0.5 [facility] Comment on above: Performed By: #### CBC #### [facility] [address] [place] [id number] Ivan Cassia LYMPH # 1.4 103/ul Normal 1.2-3.8 [facility] Comment on above: Performed By: #### CBC #### [facility] [address] [place], [place] [id number] Ivan Cassia Lymphocytes/100 WBC (Bld) 36.5 % Normal 20.5-60.0 [facility] Comment on above: Performed By: #### CBC #### [facility] [address] [place], [place] [id number] Ivan Cassia MANUAL DIFF REQ NO Normal [facility] Comment on above: Performed By: #### CBC #### [facility] [address] [place], [place] [phone] Ivan Cassia MCH (RBC) [Entitic mass] 32.0 pg Normal 26.7-34.0 [facility] Comment on above: Performed By: #### CBC #### [facility] [address] [place], [place] [id number] Ivan Cassia MCHC (RBC) [Mass/Vol] 33.7 g/dL Normal 29.9-35.2 [facility] Comment on above: Performed By: #### CBC #### [facility] [address] [place], [place] [id number] Ivan Cassia MCV (RBC) [Entitic vol] 95.1 fL Normal 81.0-99.0 [facility] Comment on above: Performed By: #### CBC #### [facility] [address] [place] [address] Ivan Cassia MONO # 0.4 103/ul Normal 0.3-0.8 [facility] Comment on above: Performed By: #### CBC #### [facility] [address] [place], [place] [id number] Ivan Cassia Monocytes/100 WBC (Bld) 10.3 % Normal 1.7-12.0 [facility] Comment on above: Performed By: #### CBC #### [facility] [address] [place] [address] Ivan Antony NEUT # 2.0 103/ul Normal 1.4-6.5 [facility] Comment on above: Performed By: #### CBC #### [facility] [address] [place] [address] Ivan Antony Neutrophils/100 WBC (Bld) 51.1 % Normal 43.0-75.0 [facility] Comment on above: Performed By: #### CBC #### [facility] [address] [place] [address] Ivan Antony Platelet mean volume (Bld) [Entitic vol] 10.2 fL Normal 9.5-13.5 [facility] Comment on above: Performed By: #### CBC #### [facility] [address] [place] [address] Ivan Antony PLT 196 103/ul Normal 150-450 [facility] Comment on above: Performed By: #### CBC #### [facility] [address] [place] [address] Ivan Antony RBC 4.28 106/ul Normal 4.20-5.40 [facility] Comment on above: Performed By: #### CBC #### [facility] [address] [place] [address] Ivan Antony WBC 3.9 103/ul Critically low 4.0-11.0 [facility] Comment on above: Performed By: #### CBC #### [facility] [address] [place] [address] Ivan Antony CREATININEon 05-17-2021 Creatinine [Mass/Vol] 0.96 mg/dL Normal 0.52-1.04 [facility] Comment on above: Performed By: #### CRP, CREA #### [facility] [address] [place] [address] Ivan Cassia EGFR-AF ETHIOPIAN >60 Normal >=60 [facility] Comment on above: Performed By: #### CRP, CREA #### [facility] [address] [place] [address] Ivan Cassia EGFR-NON AF ETHIOPIAN >60 Normal >=60 [facility] Comment on above: Performed By: #### CRP, CREA #### [facility] [address] [place] [address] Ivan Cassia CRPon 05-17-2021 CRP [Mass/Vol] mg/L Normal <=1.0 [place] Comment on above: Performed By: #### CRP, CREA #### [facility] [address] [place] [address] Ivan Cassia SED RATE WESTERGRENon 2020 SED RATE 4 mm/hr Normal <=20 [facility] Comment on above: Performed By: #### SEDR #### [facility] [address] [place] [address] Ivan Cassia UA RANDOM W/MICROSCOPICon BACTERIA TRACE Abnormal NONE SEEN [facility] Comment on above: Performed By: #### UAMIC #### [facility] [address] [place] [address] Ivan Cassia Bilirubin Ql (U) Negative Normal NEGATIVE [facility] Comment on above: Performed By: #### UAMIC #### [facility] [address] [place] [address] Ivan Cassia CAST NONE SEEN Normal NONE SEEN [facility] Comment on above: Performed By: #### UAMIC #### [facility] [address] [place] [address] Ivan Cassia Clarity (U) SL CLOUDY Abnormal CLEAR [facility] Comment on above: Performed By: #### UAMIC #### [facility] [address] [place] [address] Ivan Cassia Color (U) LT. YELLOW Normal YELLOW [facility] Comment on above: Performed By: #### UAMIC #### [facility] [address] [place] [address] Ivan Cassia Crystals LM Nom (Urine sed) NONE SEEN Normal NONE SEEN [facility] Comment on above: Performed By: #### UAMIC #### [facility] [address] [place] [address] Ivan Cassia Epithelial cells LM Ql (Urine sed) RARE Normal NONE SEEN /RARE [facility] Comment on above: Performed By: #### UAMIC #### [facility] [address] [place] [address] Ivan Cassia Glucose Ql (U) Negative Normal NEGATIVE [facility] Comment on above: Performed By: #### UAMIC #### [facility] [address] [place] [address] Ivan Cassia Hemoglobin Ql (U) Negative Normal NEGATIVE [facility] Comment on above: Performed By: #### UAMIC #### [facility] [address] [place] [address] Ivan Cassia Ketones Ql (U) Negative Normal NEGATIVE [facility] Comment on above: Performed By: #### UAMIC #### [facility] [address] [place] [address] Ivan Cassia LEUKOCYTES Negative Normal NEGATIVE [facility] Comment on above: Performed By: #### UAMIC #### [facility] [address] [place] [address] Ivan Cassia MUCOUS NONE SEEN Normal NONE SEEN [facility] Comment on above: Performed By: #### UAMIC #### [facility] [address] [place] [address] Ivan Cassia Nitrite Ql (U) Negative Normal NEGATIVE [facility] Comment on above: Performed By: #### UAMIC #### [facility] [address] [place] [address] Ivan Cassia pH (U) 7.0 [pH] Normal 5-9 [facility] Comment on above: Performed By: #### UAMIC #### [facility] [address] [place] [address] Ivan Cassia RBC NONE SEEN Abnormal 0-2 [facility] Comment on above: Performed By: #### UAMIC #### [facility] [address] [place] [address] Ivan Cassia SPEC GRAVITY <=1.005 Abnormal 1.005-<=1.0 25 [facility] Comment on above: Performed By: #### UAMIC #### [facility] [address] [place] [address] Ivan Cassia UA PROTEIN Negative Normal NEGATIVE/ TRACE [facility] Comment on above: Performed By: #### UAMIC #### [facility] [address] [place] [address] Ivan Antony Urobilinogen Qn (U) 0.2 {Edgard'U}/dL Normal 0.2 - 1.0 [facility] Comment on above: Performed By: #### UAMIC #### [facility] [address] [place] [address] Ivan Antony WBC NONE SEEN Normal NONE SEEN [facility] Comment on above: Performed By: #### UAMIC #### [facility] [address] [place] [address] Ivan Antony PROGRESSon 08-27-2018 Protein mass conc HNO ID: [id number]: [facility] ProviderService: (none)Author Type: PhysicianType: Progress NotesFiled: 08/27/2018 6:27 AMNote Text:null (CCF:Not available AMW:[id number])Visit Summary for Catalina Rodriguez - Gender: Female - Date of :1975 ( ) Date: - Duration: 5 minutesPatient: Catalina RodriguezProvider: Justus PedrazaPatient Contact [id number] [facility]; [place] [id number] Topicspotential sinus infection, lots of snot, throat is sore. : other [AddedBy: Self - 2018-08-27]Triage QuestionsPlease provide your current address. We need this on file in case of amedical emergency.Answer [[address] [phone]]Conversation Transcripts [Notification] Practice Staff, Global Staff, will help you prepare foryour visit. She is assisting Justus Pedraza, Family Physician.[PracticeStashahana] Ivan, and thank you for connecting. The provider you are waitingto connect with is currently with another patient and will begin yourvisit shortly. Are there any questions I can answer about utilizing thisservice while you are waiting? (Please contact our customer service teamfor assistance with billing and insurance issues.)[Notification] Mitesh has left the room.[Notification] You are connected with Vick, Family Physician.[Notification] Catalina Rodriguez is located [facility].[Notification] Catalina Rodriguez has shared healthhistory...[Notification] A phone visit is being added.[Notification]Justus Pedraza has added a diagnosis/procedure code (see the VisitNotes tab).[Notification] Justus Pedraza has added adiagnosis/procedure code (see the Visit Notes tab).[Notification] Thephone visit has ended.DiagnosisAcute upper respiratory infection, unspecified Value: J06.9Code: [id number]: [id number] Code: CPT-4 ONLINE E/M BY PHYS/QHPMedications PrescribedPlaquenilFrequency [...] questions or problems with the prescription, call [phone] assistance. 2.Please re-connect for another online visit [...] basis.Electronically signed by: Justus Pedraza( ) Normal [facility] Vital Signs Date Time Vital Sign Value Performing Clinician Facility 08-25-2024 15:29-0500 Body height 167.6 cm Clovis Haddad MD Work Phone: [facility] 08-25-2024 15:29-0500 Body mass index (BMI) [Ratio] 27.12 kg/m2 Clovis Haddad MD Work Phone: [facility] 08-25-2024 15:29-0500 Body weight 76.2 kg Clovis Haddad MD Work Phone: [facility] 08-25-2024 15:29-0500 Diastolic blood pressure 74 mm[Hg] Clovis Haddad MD Work Phone: [facility] 08-25-2024 15:29-0500 Heart rate 56 /min Clovis Haddad MD Work Phone: [facility] 08-25-2024 15:29-0500 SaO2% (BldA) [Mass fraction] 99 % Clovis Haddad MD Work Phone: [facility] 08-25-2024 15:29-0500 Systolic blood pressure 124 mm[Hg] Clovis Haddad MD Work Phone: [facility] 07-25-2024 14:53-0400 Body height 167.6 cm Sukhjinderronal Evangelista DO Work Phone: [facility] 07-25-2024 14:53-0400 Body mass index (BMI) [Ratio] 27.12 kg/m2 Sukhjinder Itzkowitz DO Work Phone: [facility] 07-25-2024 14:53-0400 Body weight 76.2 kg Sukhjinder Itzkowiantoine DO Work Phone: [facility] 07-25-2024 14:53-0400 Diastolic blood pressure 80 mm[Hg] Sukhjinder Itzkowitz DO Work Phone: [facility] 07-25-2024 14:53-0400 Systolic blood pressure 128 mm[Hg] Sukhjinder Itzkowitz DO Work Phone: [facility] 09-27-2023 14:00-0500 Body height 167.64 cm Pura Kun Other [facility] Other 09-27-2023 14:00-0500 Body mass index (BMI) [Ratio] 26.14 kg/m2 Pura Kun Other [facility] Other 09-27-2023 14:00-0500 Body temperature 97.8 [degF] Pura Kun Other [facility] Other 09-27-2023 14:00-0500 Body weight 73.48 kg Pura Kun Other [facility] Other 09-27-2023 14:00-0500 Respiratory rate 18 /min Pura Kun Other [facility] Other 09-27-2023 14:00-0500 SaO2% (BldA) [Mass fraction] 98 % Pura Kun Other [facility] Other Encounters Encounter Date Encounter Type Care Provider Facility Start: 08-25-2024 End: 08-25-2024 Office outpatient visit 15 minutes Clovis Haddad MD Work Phone: [facility] Comment on above: 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) Start: 08-25-2024 End: 08-25-2024 ambulatory CLOVIS HADDAD Not Available Start: 08-25-2024 End: 08-25-2024 Bamboo flowsheet Clovis Haddad MD Work Phone: [facility] Start: 08-25-2024 End: 08-25-2024 Bamboo flowsheet Clovis Haddad MD Work Phone: [facility] Start: 07-25-2024 End: 07-25-2024 Office outpatient new 30 minutes Sukhjinder H Itzkowitz DO Work Phone: [facility] Comment on above: Special screening fo r malignant neoplasms, colon (Primary Dx) Start: 07-25-2024 End: 07-25-2024 ambulatory SUKHJINDER H ITZKOWITZ Not Available Start: 06-16-2024 End: 06-16-2024 ambulatory CLOVIS HADDAD Not Available Start: 04-06-2024 End: 04-06-2024 Patient encounter procedure MD Clovis Haddad Work Phone: [facility] Work Phone: Start: 04-06-2024 End: 04-06-2024 ambulatory MD Clovis Haddad Work Phone: [facility] Work Phone: Start: 02-15-2024 End: 02-15-2024 ambulatory ROD Bashir CEM Not Available Start: 01-20-2024 End: 01-20-2024 ambulatory CLOVIS HADDAD Not Available Start: 12-23-2023 End: 12-23-2023 ambulatory CLOVIS HADDAD Not Available Start: 09-27-2023 End: 09-27-2023 ambulatory Puradottie Tirstan Other [facility] Other Start: 09-27-2023 Office outpatient vi sit 15 minutes Pura Kun [facility] Start: 05-17-2021 End: 05-18-[address] AHMET NEVAREZ Facility:[facility]1 Procedures Date Procedure Procedure Detail Performing Clinician Start: 04-06-2024 End: 04-06-2024 Screening mammography of bilateral breasts MD Clovis Haddad Work Phone: Start: 01-15-2021 Microscopic observat ion [Identifier] in Cervix by Cyto stain Sukhjinder Evangelista DO Work Phone: Plan of Treatment Date Care Activity Detail Author Start: 04-06-2025 Screening for malign ant neoplasm of breast Mammogram [facility] Start: 03-22-2025 End: 03-22-2025 Patient encounter procedure 03/22/2025 10:45 AM EDT Office Visit [facility] [address] [place] [address] Rod Priest, DO [address] [place], [place] [id number] [facility] Start: 11-02-2024 End: 11-02-2024 Patient encounter procedure 11/02/2024 4:00 PM EST Office Visit [facility] [address] [place] [address] Sukhjinder Evangelista, DO [address] [place] [address] [facility] Start: 06-12-2024 Influenza vaccination Influenza Vacc ine (#1) [facility] Start: 01-16-2024 Screening for malign ant neoplasm of cervix [facility] Start: 12-16-2007 Screening for malign ant neoplasm of cervix HPV/Cotest [facility] Start: 1975 Screening for malign ant neoplasm of colon [facility] Payers Date Payer Category Payer Self-pay [id number] 2021 Private Health Insurance [id number] 1977 Unknown [id number] 1977 Unknown [id number]. 1259 1977 Unknown [id number] 2..[id number]. 1258 1977 Unknown [id number] 2..[id number]. 1258 1977 Unknown [id number] 2..[id number]. 1258 1977 Unknown [id number] [id number]. 1258 1977 Unknown [id number] 2..[id number]. 1259 1959 Unknown [id number] Unknown [place] [id number] Unknown [id number] [id number]. 531 Social History Date Type Detail Facility Start: 12-22-2023 End: 08-25-2024 Sex Assigned At [facility] Start: 05-18-2023 End: 09-27-2023 Tobacco smoking status NHIS Never smoked tobacco (finding) [facility] Start: 1975 Sex Assigned At Female F [facility] Start: 05-18-2023 Tobacco use and exposure Smoke less tobacco non-user [facility] Start: 07-25-2024 End: 08-25-2024 Alcoholic beverage intake Current drinker of alcohol (finding) [facility] Start: 12-22-2023 End: 07-25-2024 [facility]coholic beverage [facility] Do you belong to any clubs or organizations such as denominational groups, unions, fraternal or athletic groups, or school groups? Yes [facility] Are you now , , , , never or living with a partner? [facility] How often to you hav e a drink containing alcohol? Monthly or less [facility] How many standard dr inks containing alcohol do you have on a typical day? 1 or 2 [facility] How often do you hav e 6 or more drinks on 1 occasion? Never [facility] How hard is it for y ou to pay for the very basics like food, housing, medical care, and heating Not hard at all [facility] Do you feel stress - tense, restless, nervous, or anxious, or unable to sleep at night because your mind is troubled all the time - these days [OSQ] Only a little [facility] (I/We) worried wheth er (my/our) food would run out before (I/we) got money to buy more. Never true [facility] In the past 12 month s, was there a time when you were not able to pay the mortgage or rent on time? No [facility] Start: 05-18-2023 Alcohol Comment 3-4 drinks les s than monthly in the past year, Caffeine intake: 1cup a few days a week, coffee [facility] Start: 1975 Sex assigned at Not on file [facility] History of Present illness Narrative 08-25-2024 Clovis Haddad MD - 08/25/2024 3:30 PM EST Note Date & Type Note Facility 08-25-2024 History of Presen t illness Narrative Images from the original note were not included. Patient ID: Catalina Rodriguez is a 48 y.o. female who presents for: Chest Pain Catalina Rodriguez complains of chest pain. Onset was 4 weeks ago. Symptoms have been unchanged since that time. The patient's pain is intermittent. The patient describes the pain as dull and does not radiate. Patient rates pain as a 2/10 in intensity. Associated symptoms are: none. Aggravating factors are: none. Alleviating factors are: none. Patient's cardiac risk factors are: none. Patient's risk factors for DVT/PE: history of deep venous thrombosis and problems with IUD removal . Previous cardiac testing: none. Review of Systems Constitutional: Negative for chills and fever. Respiratory: Negative for cough, shortness of breath and wheezing. Cardiovascular: Negative for chest pain and palpitations. Gastrointestinal: Negative for abdominal pain. Genitourinary: Negative for frequency and urgency. Objective The patient is pleasant and in no acute distress. The neck is supple and trachea is midline. No masses are appreciated. The heart is regular rate and rhythm without S3, S4. No murmur. The patient has normal respiratory pattern. The breath sounds are symmetrical without evidence of rhonchi or rales. No wheezing. The skin is warm and dry. The lower extremities have trace edema. The patient has good eye contact and speech is clear. Appropriate affect. Upon examination of the spine a proximally the midthoracic region there is a palpable spasm between the rib in the vertebrae. I was easily able to identify this on 3 attempts. Is mildly tender to palpation. When pushing on the rib itself to move it slightly the patient is able to experience the front left chest pain. When examining the chest wall itself there is some minimal tenderness toward the distal part of the rib near the sternum. I actually suspect this is because she keeps rubbing active she has been touching multiple times today during this office visit. Visit Vitals BP 124/74 Pulse 56 Ht 5' 6 Wt 168 lb SpO2 99% BMI 27.12 kg/m OB Status Implant Smoking Status Never BSA 1.88 m Allergies Allergen Reactions Sulfa Antibiotics Current Outpatient Medications on File Prior to Visit Medication Sig Dispense Refill aspirin 81 MG EC tablet Take 81 mg by mouth 3 (three) times a week No current facility-administered medications on file prior to visit. 1. 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 No specific injury noted. We discussed some options and she would prefer a more conservative route. She has some [id number] anti-inflammatories at home and we discussed how to take these regularly for at least 10 if not 14 days. She is also already established with a chiropractor. We have mutually agreed to trial of the NSAID and chiropractic therapy. If this does not resolve she can contact the office back and we will begin diagnostic imaging with rib x-rays for left ribs. documented in this encounter [facility] History of Present illness Narrative 07-25-2024 Sukhjinder Evangelista DO - 07/25/2024 3:00 PM EDT Note Date & Type Note Facility 07-25-2024 History of Presen t illness Narrative Images from the original note were not included. Catalina Rodriguez 1975 Catalina Rodriguez is a 48 y.o. female presents with chief complaint of Screening colonoscopy HPI: HPI Catalina presents to schedule a screening colonoscopy, she denies any GI issues. SUBJECTIVE: MEDICATIONS: ALLERGIES Current Outpatient Medications Medication Instructions aspirin 81 mg, Oral, 3 times weekly azelastine (Astelin) 0.1 % nasal spray 1 spray, Each Nostril, 2 times daily, Use in each nostril as directed Allergies Allergen Reactions Sulfa Antibiotics PAST MEDICAL HISTORY: SOCIAL HISTORY SURGICAL HISTORY: Past Medical History: Diagnosis Date Abnormal Pap smear of cervix Allergic ? 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) History of medical problems Baby B -pneumonia History of medical problems Baby A-CF-Bowel obstruction-3 surgeries Rash since May 2011 ([place]) SLE (systemic lupus erythematosus) ([facility]) SLE with rash Social History Tobacco Use Smoking status: Never Smokeless tobacco: Never Vaping Use Vaping status: Never Used Substance Use Topics Alcohol use: Yes Alcohol/week: 2.0 standard drinks of alcohol Types: 2 Cans of beer per week Comment: 3-4 drinks less than monthly in the past year, Caffeine intake: 1cup a few days a week, coffee Drug use: Never Past Surgical History: Procedure Laterality Date SECTION, LOW TRANSVERSE 2006 HYSTEROSCOPY 12/29/2017 operative hysteroscopy with removal of IUD - lost IUD string IUD INSERTION 12/17/2012 Mirena IUD INSERTION 01/01/2018 Jose FAMILY HISTORY Family History Problem Relation Name Age of Onset Hypertension Father Dajuan Breast cancer Mother's Sister Alanna REVIEW OF SYMPTOMS: Review of Systems Constitutional: Negative for diaphoresis and unexpected weight change. HENT: Negative for hearing loss, tinnitus and voice change. Respiratory: Negative for shortness of breath. Cardiovascular: Negative for chest pain and palpitations. Musculoskeletal: Negative for arthralgias. Neurological: Negative for dizziness, seizures and headaches. All other systems reviewed and are negative. Hematological: Negative for adenopathy. Does not bruise/bleed easily. OBJECTIVE: Visit Vitals OB Status Implant Smoking Status Never Physical Exam HENT: Head: Normocephalic. Cardiovascular: Rate and Rhythm: Normal rate and regular rhythm. Pulmonary: Effort: Pulmonary effort is normal. Breath sounds: Normal breath sounds. Abdominal: General: Abdomen is flat. Bowel sounds are normal. Palpations: Abdomen is soft. Skin: General: Skin is warm and dry. Neurological: Mental Status: She is alert. ASSESSMENT AND PLAN: Assessment/Plan Problem List Items Addressed This Visit Special screening for malignant neoplasms, colon - Primary I explained the colonoscopy procedure in detail to the patient and discussed the risks and benefits including but not exclusive of bleeding, and perforation. I asked the patient not to drive, operate any machinery or make any important decisions on the day of the procedure. The patient is in agreement and arrangements for colonoscopy have been made. documented in this encounter [facility] Evaluation note 09-27-2023 Note Date & Type [...] with your [facility] care doctor if symptoms persist, go to the ER if you develop chest pain, shortness of breath, difficulty breathing or pain with deep breathing. Sep, Acute bilateral otitis media (ICD-10 - H66.93) SeeFuture Other Evaluation note Note Date & Type Note Facility Evaluation note No assessment information [facility] Work Phone: Evaluation note Note Date & Type Note Facility Evaluation note Diagnosis Special screening for malignant neoplasms, colon- Primary documented in this encounter [facility] Evaluation note Note Date & Type Note Facility Evaluation note Diagnosis Vertebral subluxation complex of rib cage- Primary documented in this encounter [facility] History general Narrative - Reported Note Date & Type Note Facility History general Narrative - Reported Type Medical History Lupus Surgical History Hospitalization History see above surgical histo ry SeeFuture Other Summary Purpose Family History Relationship Condition Age at Onset Recorded Date/T peggy family member Family history of other condition Unknow n sister Unknown Advance Directives Advance Directive Response Recorded Date/ Time Advance Directives No December 28 018 1:09pm Chief Complaint and Reason for Visit Chief Complaint Screening Additional Source Comments INFORMATION SOURCE (unrecogn ized section and content) DATE CREATED AUTHOR 09/20/2018 [facility] DATE CREATED AUTHOR AUTHOR'S ORGANIZ ATION 07/06/2021 [facility] DATE CREATED AUTHOR AUTHOR'S ORGANIZ ATION 04/12/2024 [facility] DATE CREATED AUTHOR AUTHOR'S ORGANIZ ATION 08/28/2024 [facility] EPIC REASON FOR VISIT (unrecogniz ed section and content) Reason Comments Screening colonoscopy Specialty Diagnoses / Procedures Referred By Contac t Referred To Contact General Surgery Diagnoses Encounter for screening for malignant neoplasm of colon Procedures VT COLONOSCOPY FLX DX W/COLLJ SPEC WHEN PFRMD Rod Priest, DO [address] [place] [address] Phone: tel: fax: Sukhjinder Evangelista, DO [address] [place] [address] Phone: tel: fax: Referral ID Status Reason Start Date Expiration Date V isits Requested Visits Authorized [id number] Closed Perform Procedure 02/15/2024 08/13/2024 1 1 Reason Comments chest discomfort Care Teams (unrecognized sec tion and content) Team Status: Active Member Role Status Dates Clovis Haddad MD Primary Care Provider Active Team Status: Inactive Member Role Status Dates Clovis Haddad MD Primary Care Provider Active Start: April 06, 2024 End: April 06, 2024 Referral Self Attending Provider Active Start: Hugo frank 2023 End: April 06, 2024 Rod Priest DO Referring Provider Active Sta rt: April 06, 2024 End: April 06, 2024 Power Barker Operator Relationship Specialty Start Date End Date Clovis Haddad MD [address] [facility] [place] [address] PCP - General 05/11/23 Power Barker Operator Relationship Specialty Start Date End Date Clovis Haddad MD [address] [address] PCP - General 05/11/23 Power Barker Operator Relationship Specialty Start Date End Date Clovis Haddad MD [address] [address] PCP - General 05/11/23 Goals (unrecognized section and content) Goals may be documented in a n alternate section FOR RECORDS PERTAINING TO PATIENTS WHO ARE [...] BE BASED ON THE PRIMARY CLINICAL RECORDS. meets [facility]. provides no warranty or guarantee of the accuracy or completeness of information in this document.
== END 2024-09-09 10:18 | disposition home or self-care (01) ==
LOC: CARD 10:17
PROVIDERS: PCP Family Medicine; Visit Provider Family Medicine
DX: R07.89 Other chest pain (principal); R00.2 Palpitations
CPT/HCPCS: 93242